=== PATIENT | female | born 1955 | race Caucasian/White ===

== ENCOUNTER → 2020-03-28 | Outpatient (CLI) | payer MEDICARE, BC ==
[~2020-03-28] MED LIST: APAP325T4 PO; ASPI81CH33 PO; ATOR1TAB21 PO; CALC1TAB26 PO; EQLTAB18 PO; FAMO20TA PO; FERR325T16 PO; LISI20TA35 PO; METO1TAB33 PO; SITA50TAB PO; VITA-158 PO; VITA1CHW7 PO
== END ==
LOC: M LABSMTC 10:38
PROVIDERS: ATTEND Anesthesiology
DX: Z01.812 Encounter for preprocedural laboratory examination (principal); Z20.828 Contact with and (suspected) exposure to other viral communicable diseases
CPT/HCPCS: C9803; U0003

== ENCOUNTER 2020-04-02 08:12 | Day surgery (SDC) | payer MEDICARE, BC ==
[~2020-04-02] VITALS: Ht 165.1 cm; Wt 76.7 kg
[~2020-04-02 08:12] MED LIST changes: -EQLTAB18 PO; -FAMO20TA PO; +LIDOCAINE 2% 100MG/5ML SDV (FOR ANES.) As Ordered ONE; +NS 1,000 ML IV ONE; +PHENYLephrine HCL 500 MCG/5 ML (100MCG/ML) SYRINGE (J2370) As Ordered ONE; +propofoL 200 MG/20 ML VIAL As Ordered ONE
[2020-04-02] MEDS ORDERED: ePHEDrine SULFATE 25 MG/5 ML(5MG/ML) SYRINGE As Ordered ONE (10:08)
[2020-04-02] MEDS ORDERED: propofoL 200 MG/20 ML VIAL As Ordered ONE (10:12)
[2020-04-02] MEDS ORDERED: PHENYLephrine HCL 500 MCG/5 ML (100MCG/ML) SYRINGE (J2370) As Ordered ONE (10:15)
--- NOTE | 2020-04-02 10:33 | ROOR ---
Patient Name: Chiquis Greenwood Procedure Date: 04/02/2020 9:42 AM Date of : 1955 Age: 64 Room: [facility] Gender: Female Note Status: Finalized Procedure: Upper GI endoscopy Indications: Iron deficiency anemia Providers: Nils Lopez MD Referring MD: Ehsan Jimenes MD Requesting Provider: Medicines: Monitored Anesthesia Care Complications: No immediate complications. Procedure: Pre-Anesthesia Assessment: - Prior to the procedure, a History and Physical was performed, and patient medications and allergies were reviewed. The patient is competent. The risks and benefits of the procedure and the sedation options and risks were discussed with the patient. All questions were answered and informed consent was obtained. Patient identification and proposed procedure were verified by the physician, the nurse and the anesthesiologist in the procedure room. Mental Status Examination: alert and oriented. Airway Examination: normal oropharyngeal airway and neck mobility. Respiratory Examination: clear to auscultation. CV Examination: normal. Prophylactic Antibiotics: The patient does not require prophylactic antibiotics. Prior Anticoagulants: The patient has taken no previous anticoagulant or antiplatelet agents. ASA Grade Assessment: II - A patient with mild systemic disease. After reviewing the risks and benefits, the patient was deemed in satisfactory condition to undergo the procedure. The anesthesia plan was to use monitored anesthesia care (MAC). Immediately prior to administration of medications, the patient was re-assessed for adequacy to receive sedatives. The heart rate, respiratory rate, oxygen saturations, blood pressure, adequacy of pulmonary ventilation, and response to care were monitored throughout the procedure. The physical status of the patient was re-assessed after the procedure. The Endoscope was introduced through the mouth, and advanced to the second part of duodenum. The upper GI endoscopy was accomplished without difficulty. The patient tolerated the procedure well. Findings: The Z-line was regular and was found 32 cm from the incisors. LA Grade A (one or more mucosal breaks less than 5 mm, not extending between tops of 2 mucosal folds) esophagitis with no bleeding was found in the distal esophagus. Biopsies were taken with a cold forceps for histology. Verification of patient identification for the specimen was done by the physician and nurse using the patient's name, date and medical record number. Estimated blood loss was minimal. A large hiatal hernia was present. Scattered moderate inflammation characterized by erosions, friability and granularity was found in the gastric body and in the gastric antrum. Biopsies were taken with a cold forceps for histology. Biopsies were taken with a cold forceps for Helicobacter pylori testing. The duodenal bulb and second portion of the duodenum were normal. Biopsies for histology were taken with a cold forceps for evaluation of celiac disease. Impression: - Z-line regular, 32 cm from the incisors. - LA Grade A reflux esophagitis. Rule out Ramirez's esophagus. Biopsied. - Large hiatal hernia. - Gastritis. Biopsied. - Normal duodenal bulb and second portion of the duodenum. Biopsied. Recommendation: - Patient has a contact number available for emergencies. The signs and symptoms of potential delayed complications were discussed with the patient. Return to normal activities tomorrow. Written discharge instructions were provided to the patient. - High fiber diet. - Continue present medications. - Await pathology results. - Follow an antireflux regimen. - Use Pepcid (famotidine) 20 mg PO Twice daily ( take assembler product on empty stomach and at bedtime) for 3 months. - Return to GI clinic in [facility] (address [address], [address], [place] [address]) in 4 -- 6 weeks. Please call GI clinic @ [phone] for apppointment date and time. - Return to primary care physician. Nils Lopez MD Nils Lopez MD 04/02/2020 10:33:39 AM Electronically signed by Nils Lopez MD Number of Addenda: 0 Note Initiated On: 04/02/2020 9:42 AM Estimated Blood Loss: Estimated blood loss was minimal.
--- NOTE | 2020-04-02 10:48 | ROOR ---
Patient Name: Chiquis Greenwood Procedure Date: 04/02/2020 9:43 AM Date of : 1955 Age: 64 Room: [facility] Gender: Female Note Status: Finalized Procedure: Colonoscopy Indications: Iron deficiency anemia Providers: Nils Lopez MD Referring MD: Ehsan Jimenes MD Requesting Provider: Medicines: Monitored Anesthesia Care Complications: No immediate complications. Procedure: Pre-Anesthesia Assessment: - Prior to the procedure, a History and Physical was performed, and patient medications and allergies were reviewed. The patient is competent. The risks and benefits of the procedure and the sedation options and risks were discussed with the patient. All questions were answered and informed consent was obtained. Patient identification and proposed procedure were verified by the physician, the nurse and the anesthesiologist in the procedure room. Mental Status Examination: alert and oriented. Airway Examination: normal oropharyngeal airway and neck mobility. Respiratory Examination: clear to auscultation. CV Examination: normal. Prophylactic Antibiotics: The patient does not require prophylactic antibiotics. Prior Anticoagulants: The patient has taken no previous anticoagulant or antiplatelet agents. ASA Grade Assessment: II - A patient with mild systemic disease. After reviewing the risks and benefits, the patient was deemed in satisfactory condition to undergo the procedure. The anesthesia plan was to use monitored anesthesia care (MAC). Immediately prior to administration of medications, the patient was re-assessed for adequacy to receive sedatives. The heart rate, respiratory rate, oxygen saturations, blood pressure, adequacy of pulmonary ventilation, and response to care were monitored throughout the procedure. The physical status of the patient was re-assessed after the procedure. The Colonoscope was introduced through the anus and advanced to the terminal ileum, with identification of the appendiceal orifice and IC valve. The colonoscopy was performed without difficulty. The patient tolerated the procedure well. The quality of the bowel preparation was good. The terminal ileum, ileocecal valve, appendiceal orifice, and rectum were photographed. Scope insertion time was 3 minutes. Scope withdrawal time was 9 minutes. The total duration of the procedure was 12 minutes. Findings: The perianal and digital rectal examinations were normal. The terminal ileum appeared normal. An infiltrative and ulcerated partially obstructing large mass was found in the proximal ascending colon. The mass was circumferential. The mass measured four cm in length. Contact bleeding is noted. This was biopsied with a cold forceps for histology. Verification of patient identification for the specimen was done by the physician and nurse using the patient's name, date and medical record number. Estimated blood loss was minimal. Area distal to the tumor was tattooed with an injection of Spot (carbon black). Multiple small and large-mouthed diverticula were found from sigmoid to descending colon. There was no evidence of diverticular bleeding. Non-bleeding external and internal hemorrhoids were found during retroflexion. The hemorrhoids were medium-sized. Impression: - The examined portion of the ileum was normal. - Likely malignant partially obstructing tumor in the proximal ascending colon. Biopsied. Area distal to the tumor was tattooed with an injection of Spot (carbon black). . - Moderate diverticulosis from sigmoid to descending colon. There was no evidence of diverticular bleeding. - Non-bleeding external and internal hemorrhoids. Recommendation: - Patient has a contact number available for emergencies. The signs and symptoms of potential delayed complications were discussed with the patient. Return to normal activities tomorrow. Written discharge instructions were provided to the patient. - High fiber diet. - Continue present medications. - Await pathology results. - Refer to a surgeon at appointment to be scheduled. - Perform a CT scan (computed tomography) of abdomen with contrast and pelvis with contrast for staging, ( to be scheduled). - Repeat colonoscopy in 1 year per protocol and for surveillance based on pathology results. - Refer to an oncologist at appointment to be scheduled. - Return to primary care physician. Nils Lopez MD Nils Lopez MD 04/02/2020 10:47:59 AM Electronically signed by Nils Lopez MD Number of Addenda: 0 Note Initiated On: 04/02/2020 9:43 AM Estimated Blood Loss: Estimated blood loss was minimal.
[2020-04-02 11:00] VITALS: BP 136/63
[2020-04-15] MEDS ORDERED: FAMO20TA PO (12:07)
[2020-05-30] MEDS ORDERED: EQLTAB18 PO (14:14)
== END 2020-04-02 11:23 | disposition home or self-care (01) ==
LOC: M OPP 08:12
PROVIDERS: ATTEND Internal Medicine Gastroenterology
DX: D49.0 Neoplasm of unspecified behavior of digestive system (principal); K64.8 Other hemorrhoids; K56.690 Other partial intestinal obstruction; K57.30 Diverticulosis of large intestine without perforation or abscess without bleeding; D50.9 Iron deficiency anemia, unspecified; K21.0 Gastro-esophageal reflux disease with esophagitis; K44.9 Diaphragmatic hernia without obstruction or gangrene; K29.70 Gastritis, unspecified, without bleeding; Z79.899 Other long term (current) drug therapy; Z79.84 Long term (current) use of oral hypoglycemic drugs; Z79.82 Long term (current) use of aspirin; Z88.1 Allergy status to other antibiotic agents; Z88.5 Allergy status to narcotic agent; Z88.8 Allergy status to other drugs, medicaments and biological substances
CPT/HCPCS: 43239; 45380; 88305; J2370

== ENCOUNTER → 2020-04-08 | Outpatient (CLI) | payer MEDICARE, BC ==
[~2020-04-08] MED LIST changes: +EQLTAB18 PO; +FAMO20TA PO; -LIDOCAINE 2% 100MG/5ML SDV (FOR ANES.) As Ordered ONE; -NS 1,000 ML IV ONE; -PHENYLephrine HCL 500 MCG/5 ML (100MCG/ML) SYRINGE (J2370) As Ordered ONE; -propofoL 200 MG/20 ML VIAL As Ordered ONE
[2020-04-08 10:11] LABS: BASO # 0.1 10^3/uL (0.0-0.2); BASO % 1.6 % (0.0-1.0); EOS # 0.2 10^3/uL (0.0-0.5); EOS % 3.3 % (0.0-3.0); HEMATOCRIT 30.4 % (36.0-47.0); HEMOGLOBIN 10.1 g/dl (12.0-15.5); LYMPH # 1.7 10^3/uL (1.5-5.0); LYMPH % 30.3 % (24.0-44.0); MEAN CORPUSCULAR HEMOGLOBIN 30.1 pg (27.0-33.0); MEAN CORPUSCULAR HGB CONC 33.2 g/dl (32.0-36.5); MEAN CORPUSCULAR VOLUME 90.7 fl (80.0-96.0); MONO # 0.6 10^3/uL (0.0-0.8); MONO % 11.7 % (0.0-5.0); NEUTROPHILS # 2.9 10^3/uL (1.5-8.5); NEUTROPHILS % 52.7 % (36.0-66.0); PLATELET COUNT, AUTOMATED 309 10^3/uL (150-450); RED BLOOD COUNT 3.35 10^6/uL (4.00-5.40); WHITE BLOOD COUNT 5.5 10^3/uL (4.0-10.0)
[2020-04-08 10:46] LABS: ALBUMIN 3.7 GM/DL (3.2-5.2); ALT/SGPT 20 U/L (12-78); BILIRUBIN,DIRECT 0.2 MG/DL (0.0-0.2); BILIRUBIN,TOTAL 0.6 MG/DL (0.2-1.0); BLOOD UREA NITROGEN 20 MG/DL (7-18); CREATININE FOR GFR 0.88 MG/DL (0.55-1.30); GLOMERULAR FILTRATION RATE > 60.0 (>45); TOTAL PROTEIN 7.1 GM/DL (6.4-8.2)
== END ==
LOC: M LAB 09:08
PROVIDERS: ATTEND Internal Medicine Gastroenterology
DX: C18.2 Malignant neoplasm of ascending colon (principal)

== ENCOUNTER → 2020-04-10 | Outpatient (CLI) | payer MEDICARE, BC ==
[~2020-04-10] MED LIST changes: +GASTROGRAFIN SOLUTION 30ML (Q9963) As Ordered ONE; +ISOVUE-370 76% 100ML VIAL As Ordered ONE
--- NOTE | 2020-04-16 17:14 | REP ---
CT ABDOMEN AND PELVIS WITH ORAL AND IV CONTRAST HISTORY: Malignant neoplasm ascending colon. FINDINGS: CT abdomen and pelvis performed following the administration of oral contrast as well as the intravenous administration of 100 cc of Isovue-370. Sagittal and coronal reconstruction images are performed. Visualized lung bases are clear. There is a calcified granuloma at the right dome of the liver. No liver mass is seen. The spleen is normal in size with no intrinsic abnormality. The adrenal glands are normal. The pancreas demonstrates no mass. There is a subcentimeter cyst in the lower pole of the right kidney. Otherwise no renal abnormality is seen bilaterally. There is mild to moderate atherosclerotic calcification of the abdominal aorta without aneurysm. There is a small hiatal hernia. Gallbladder is grossly unremarkable. I see no evidence of adenopathy in the abdomen or pelvis. I see no free air or free fluid. There may be some mild thickening of a portion of the ascending colon. Otherwise no definite bowel abnormality is seen. In the pelvis, a cystic structure of the left ovary measures 2.3 cm in diameter. Right ovary is unremarkable. Urinary bladder is mildly distended and grossly unremarkable. There are mild degenerative changes of the spine. Scattered diverticula are seen of the colon. IMPRESSION: Possible mild right colonic thickening. Otherwise no definite bowel wall thickening or mass. There are scattered diverticula of the colon. There is a small hiatal hernia. Otherwise no mass is seen of the visceral organs. No adenopathy is seen. Subcentimeter cyst is noted of the right kidney. Left ovary demonstrates a cystic structure approximately 2.3 cm in diameter. Recommend further evaluation with pelvic ultrasound. MTDD
== END ==
LOC: M RAD 12:25
PROVIDERS: ATTEND Internal Medicine Gastroenterology
DX: C18.2 Malignant neoplasm of ascending colon (principal)
CPT/HCPCS: 74177; Q9963; Q9967

== ENCOUNTER → 2020-04-21 | Outpatient (CLI) | payer MEDICARE, BC ==
[~2020-04-21] MED LIST changes: -GASTROGRAFIN SOLUTION 30ML (Q9963) As Ordered ONE; -ISOVUE-370 76% 100ML VIAL As Ordered ONE
== END ==
LOC: M LABSMTC 10:53
PROVIDERS: ATTEND Anesthesiology
DX: Z01.812 Encounter for preprocedural laboratory examination (principal); Z20.828 Contact with and (suspected) exposure to other viral communicable diseases
CPT/HCPCS: C9803; U0003

== ENCOUNTER 2020-04-26 06:11 | Inpatient (IN) | payer MEDICARE, BC ==
--- NOTE | 2020-04-25 09:23 | HPE ---
DATE OF ANTICIPATED ADMISSION: 04/26/2020. CHIEF COMPLAINT: Ascending colon mass. BRIEF HISTORY OF PRESENT ILLNESS: Patient is a 64-year-old female who underwent evaluation with a colonoscopy and EGD for anemia and during her colonoscopy, found a mass in the right colon. A biopsy revealed high-grade dysplasia. I was asked to see the patient here in the office and schedule a right colectomy for her. She had a CAT scan which revealed no metastatic disease and some thickening in the right colon, however once again it is called high-grade dysplasia, but when I view the photos of the lesion on the colonoscopy report, they appear to most likely be a malignancy. Patient has not had any bright red blood per rectum, and no melanotic stool. No nausea. No vomiting. No fevers or chills. No weight loss issues. PAST MEDICAL HISTORY: Significant for history of diabetes mellitus, history of hypertension, history of hypercholesterolemia, history of skin grafting. MEDICATIONS: Atorvastatin, Lisinopril, Hydrochlorothiazide, Metoprolol, Januvia, Refresh Tears, Vitamin D, Vitamin C, calcium, aspirin and iron as well as Famotidine. PHYSICAL EXAMINATION: GENERAL: Reveals a 64-year-old female, looks stated age. HEENT: Unremarkable. NECK: Supple without adenopathy. LUNGS: Clear to auscultation and without crackles, wheezes or rhonchi. HEART: Regular and without murmur. ABDOMEN: Soft, nontender, non-distended. No guarding, no rebound, no peritoneal signs are appreciated. EXTREMITIES: Warm and well perfused. IMPRESSION/PLAN: Patient has evidence of an abnormal mass in the right colon; most likely malignant colon cancer. My recommendation is to proceed with a laparoscopic right colectomy. Risks as well as benefits have been discussed at length with the patient, those including but limited to infection, bleeding, damage to the surrounding structures as well as need for ostomy. Patient understands that she will be receiving a mechanical bowel prep the day prior and an antibiotic bowel prep as well as I.V. antibiotics preoperatively. Will have PAT sequentials and Marina catheter placed at the time of the operation and postoperatively be hospitalized for approximately 3 to 5 days depending on her overall progress. [facility]
[2020-04-26] VITALS (9 sets, daily range): BP systolic 117–177; BP diastolic 55–84
[~2020-04-26] VITALS: Ht 170.2 cm; Wt 80.5 kg
[~2020-04-26 06:11] MED LIST changes: -EQLTAB18 PO
[2020-04-26] MEDS ORDERED: LevoFLOXacin 500MG/100ML IV BAG (J1956 PER 250MG) As Ordered ONE (06:44)
[2020-04-26] MEDS ORDERED: LR 1,000 ML IV ONE (07:00)
[2020-04-26] MEDS ORDERED: LevoFLOXacin IV 500 MG in IV 1 EA IV ONE (07:00)
[2020-04-26] MEDS ORDERED: BUPIVACAINE/EPIN 0.25% 30 ML VIAL As Ordered ONE (07:11)
[2020-04-26] MEDS ORDERED: GLUCAGON INJ 1MG VIAL As Ordered ONE (07:11)
[2020-04-26] MEDS ORDERED: METOPROLOL SUCC (TopROL XL) 50MG **XL** TAB PO ONE (07:15)
[2020-04-26] MEDS ORDERED: SCOPOLAMINE 1MG TRANSDERMAL PATCH TOP ONE (07:15)
[2020-04-26] MEDS ORDERED: LIDOCAINE 2% 100MG/5ML SDV (FOR ANES.) As Ordered ONE ×2 (07:16→07:17)
[2020-04-26] MEDS ORDERED: propofoL 200 MG/20 ML VIAL As Ordered ONE (07:16)
[2020-04-26] MEDS ORDERED: ROCURONIUM BROMIDE 50 MG/5 ML VIAL As Ordered ONE ×2 (07:16→09:03)
[2020-04-26] MEDS ORDERED: MIDAZOLAM INJ 2MG/2ML VIAL (J2250 PER 1MG) As Ordered ONE (07:17)
[2020-04-26] MEDS ORDERED: dexameTHASONE 4 MG/ML 1ML VIAL (J1100 PER 1MG) As Ordered ONE (07:17)
[2020-04-26] MEDS ORDERED: ONDANSETRON 4MG/2ML VIAL As Ordered ONE (07:17)
[2020-04-26] MEDS ORDERED: fentaNYL 100 MCG/2 ML INJECTION (J3010) As Ordered ONE (07:17)
[2020-04-26] MEDS ORDERED: ESMOLOL INJ 100MG/10ML VIAL As Ordered ONE (07:38)
[2020-04-26] MEDS ORDERED: PHENYLephrine HCL 500 MCG/5 ML (100MCG/ML) SYRINGE (J2370) As Ordered ONE ×2 (08:12→08:34)
[2020-04-26] MEDS ORDERED: LACRILUBE (AKWA TEARS) OPHTH OINT 3.5 GM As Ordered ONE (08:13)
[2020-04-26] MEDS ORDERED: METOPROLOL 5 MG/5 ML VIAL As Ordered ONE (08:14)
[2020-04-26] MEDS ORDERED: BUPIVACAINE HCL 0.25% 10ML VIAL As Ordered ONE (09:12)
[2020-04-26] MEDS ORDERED: BUPIVACAINE LIPOSOME/PF 1.3% 20ML VIAL (13.3MG/ML)(EXPAREL)(C9290 PER1MG) As Ordered ONE (09:13)
[2020-04-26] MEDS ORDERED: KETOROLAC 60MG 2ML VIAL As Ordered ONE (09:24)
[2020-04-26] MEDS ORDERED: ACETAMINOPHEN 1000MG 100ML IV BTL (OFIRMEV) (J0131 PER 10MG) As Ordered ONE (09:27)
[2020-04-26] MEDS ORDERED: SUGAMMADEX SODIUM 500 MG/5 ML VIAL (BRIDION) As Ordered ONE (09:35)
[2020-04-26] MEDS ORDERED: ONDANSETRON 4MG/2ML VIAL IV PRN ×2 (10:30→11:00)
[2020-04-26] MEDS ORDERED: IPRATROPIUM 0.5MG/ALBUTEROL 2.5MG INH SOL UD 3ML (DUONEB) NEB PRN (10:30)
[2020-04-26] MEDS ORDERED: MORPHINE 2 MG/ML 1ML VIAL (J2270) IV PRN (10:30)
[2020-04-26] MEDS ORDERED: NORCO, ANEXSIA 5/325MG TABLET (HYDROcodone/ACETAMINOPHEN) PO PRN ×2 (10:30)
[2020-04-26] MEDS ORDERED: MORPHINE 4 MG/ML 1ML VIAL/SYRINGE (J2270) IV PRN (10:30)
[2020-04-26] MEDS ORDERED: METOCLOPRAMIDE INJ 10MG/2ML VIAL (J2765 PER 1) IV PRN (11:00)
[2020-04-26] MEDS ORDERED: fentaNYL 100 MCG/2 ML INJECTION (J3010) IV PRN (11:00)
[2020-04-26] MEDS ORDERED: oxyCODONE 5MG TAB PO PRN (11:00)
[2020-04-26] MEDS ORDERED: LR 1,000 ML IV SCH (11:00)
[2020-04-26] MEDS ORDERED: HYDROMORPHONE HCL 0.5 MG/ 0.5 ML SYRINGE (J1170 PER 1) IV PRN (11:00)
[2020-04-26] MEDS: NS 1,000 ML IV SCH ×2 (12:14→20:07)
[2020-04-26] MEDS: PANTOPRAZOLE 40MG VIAL (C9113 PER 1) IV SCH (12:45)
[2020-04-26] MEDS: IPRATROPIUM 0.5MG/ALBUTEROL 2.5MG INH SOL UD 3ML (DUONEB) NEB SCH ×2 (14:17→20:02)
[2020-04-26] MEDS: KETOROLAC 30 MG/ML 1ML VIAL IV SCH ×2 (16:10→22:00)
[2020-04-27 00:45] VITALS: BP 132/64
[2020-04-27] MEDS: IPRATROPIUM 0.5MG/ALBUTEROL 2.5MG INH SOL UD 3ML (DUONEB) NEB SCH ×4 (02:00→19:47)
[2020-04-27] MEDS: KETOROLAC 30 MG/ML 1ML VIAL IV SCH ×4 (04:00→22:59)
[2020-04-27] MEDS: NS 1,000 ML IV SCH ×3 (04:04→16:44)
[2020-04-27 05:43] LABS: HEMATOCRIT 24.9 % (36.0-47.0); HEMOGLOBIN 8.2 g/dl (12.0-15.5); MEAN CORPUSCULAR HEMOGLOBIN 29.7 pg (27.0-33.0); MEAN CORPUSCULAR HGB CONC 32.9 g/dl (32.0-36.5); MEAN CORPUSCULAR VOLUME 90.2 fl (80.0-96.0); PLATELET COUNT, AUTOMATED 238 10^3/uL (150-450); RED BLOOD COUNT 2.76 10^6/uL (4.00-5.40); WHITE BLOOD COUNT 10.6 10^3/uL (4.0-10.0)
[2020-04-27 06:00] VITALS: BP 132/62
[2020-04-27 06:04] LABS: CALCIUM LEVEL 8.2 MG/DL (8.8-10.2); CREATININE FOR GFR 1.66 MG/DL (0.55-1.30); GLOMERULAR FILTRATION RATE 32.9 (>45); POTASSIUM SERUM 3.6 MEQ/L (3.5-5.1)
[2020-04-27] MEDS ORDERED: NS 500 ML IV ONE (08:00)
[2020-04-27] MEDS ORDERED: LevoFLOXacin IV 500 MG in IV 1 EA IV ONE (08:00)
[2020-04-27] MEDS: ALVIMOPAN 12 MG CAPSULE (ENTEREG) PO SCH ×2 (08:28→20:36)
--- NOTE | 2020-04-27 08:48 | IPNPDOC ---
Text Note Date of Service The patient was seen on 04/27/20. NOTE No acute events overnight. Denies nausea, emesis, or fevers. Abd pain is con trolled and she has already been up walking some. No flatus or BM yet, but she feels like she has to. VSSAF UOP - 400cc NAD abd - soft, TTP appropriate, incisions c/d/i labs - below Cr - 1.66 A) 64y/o female s/p rt hemicolectomy for mass POD#1 P) clq diet today ivf with bolus today ambulate in halls encourage IS strict I's and O's d/c hernandez start lovenox due to high risk for DVT Ra Cabezas DO VS,Vinnie, I+O VS, Vinnie, I+O Laboratory Tests 04/27/20 05:29 Vital Signs Date Time Temp Pulse Resp B/P (MAP) Pulse Ox O2 Delivery O2 Flow Rate FiO2 04/27/20 06:00 98.1 54 18 132/62 (85) 97 Room Air I&O- Last 24 Hours up to 6 AM 04/27/20 05:59 Intake Total 2590 ml Output Total 425 ml Balance 2165 ml JANET CABEZAS DO Apr 27, 2020 08:48
[2020-04-27 10:00] VITALS: BP 114/57
[2020-04-27] MEDS: ENOXAPARIN 40MG/0.4ML SYRINGE (J1650 PER 10MG) SC SCH (10:08)
[2020-04-27] MEDS: PANTOPRAZOLE 40MG VIAL (C9113 PER 1) IV SCH (12:10)
[2020-04-27 14:00] VITALS: BP 128/58
[2020-04-27 18:00] VITALS: BP 128/61
[2020-04-27 22:00] VITALS: BP 134/74
[2020-04-28] MEDS: NS 1,000 ML IV SCH (00:47)
[2020-04-28 02:00] VITALS: BP 135/62
[2020-04-28] MEDS: IPRATROPIUM 0.5MG/ALBUTEROL 2.5MG INH SOL UD 3ML (DUONEB) NEB SCH ×4 (02:00→20:00)
[2020-04-28] MEDS: KETOROLAC 30 MG/ML 1ML VIAL IV SCH ×4 (04:00→20:52)
[2020-04-28 06:00] VITALS: BP 138/64
[2020-04-28 06:33] LABS: HEMATOCRIT 23.8 % (36.0-47.0); HEMOGLOBIN 7.6 g/dl (12.0-15.5); MEAN CORPUSCULAR HEMOGLOBIN 29.3 pg (27.0-33.0); MEAN CORPUSCULAR HGB CONC 31.9 g/dl (32.0-36.5); MEAN CORPUSCULAR VOLUME 91.9 fl (80.0-96.0); PLATELET COUNT, AUTOMATED 216 10^3/uL (150-450); RED BLOOD COUNT 2.59 10^6/uL (4.00-5.40)
[2020-04-28 07:01] LABS: BLOOD UREA NITROGEN 18 MG/DL (7-18); CALCIUM LEVEL 8.3 MG/DL (8.8-10.2); CARBON DIOXIDE LEVEL 20 MEQ/L (21-32); CHLORIDE LEVEL 118 MEQ/L (98-107); CREATININE FOR GFR 0.93 MG/DL (0.55-1.30); GLOMERULAR FILTRATION RATE > 60.0 (>45); GLUCOSE, FASTING 73 MG/DL (70-100); POTASSIUM SERUM 3.6 MEQ/L (3.5-5.1); SODIUM LEVEL 145 MEQ/L (136-145)
--- NOTE | 2020-04-28 09:01 | IPNPDOC ---
Text Note Date of Service The patient was seen on 04/28/20. NOTE No acute events overnight. Denies nausea, emesis, or fevers. Abd pain is minimal and she is tolerating diet and hd 2 BMs. She is anxious to go home. VSSAF NAD abd - soft, TTP appropriate, incisions c/d/i labs - below A) 64y/o female s/p rt hemicolectomy for mass POD#2 P) reg diet today dc ivf ambulate in halls encourage IS plan on d/c home in am Ra Cabezas DO VS,Fishbone, I+O VS, Fishbone, I+O Laboratory Tests 04/28/20 05:39 Vital Signs Date Time Temp Pulse Resp B/P (MAP) Pulse Ox O2 Delivery O2 Flow Rate FiO2 04/28/20 06:00 97.9 72 18 138/64 (88) 97 Room Air I&O- Last 24 Hours up to 6 AM 04/28/20 06:00 Intake Total 5560 ml Output Total 1350 ml Balance 4210 ml JANET CABEZAS DO Apr 28, 2020 09:01
[2020-04-28 10:00] VITALS: BP 126/60
[2020-04-28] MEDS: ENOXAPARIN 40MG/0.4ML SYRINGE (J1650 PER 10MG) SC SCH (10:15)
[2020-04-28] MEDS: ALVIMOPAN 12 MG CAPSULE (ENTEREG) PO SCH ×2 (10:15→20:53)
[2020-04-28] MEDS: PANTOPRAZOLE 40MG VIAL (C9113 PER 1) IV SCH (12:51)
[2020-04-28 14:00] VITALS: BP 126/60
[2020-04-28 18:00] VITALS: BP 136/67
[2020-04-28 22:00] VITALS: BP 144/68
[2020-04-29 02:00] VITALS: BP 152/70
[2020-04-29] MEDS: IPRATROPIUM 0.5MG/ALBUTEROL 2.5MG INH SOL UD 3ML (DUONEB) NEB SCH ×2 (02:00→07:39)
[2020-04-29] MEDS: KETOROLAC 30 MG/ML 1ML VIAL IV SCH ×2 (04:00→09:02)
[2020-04-29 06:00] VITALS: BP 153/71
[2020-04-29 06:47] LABS: HEMATOCRIT 23.9 % (36.0-47.0); HEMOGLOBIN 7.8 g/dl (12.0-15.5); MEAN CORPUSCULAR HEMOGLOBIN 29.9 pg (27.0-33.0); MEAN CORPUSCULAR HGB CONC 32.6 g/dl (32.0-36.5); MEAN CORPUSCULAR VOLUME 91.6 fl (80.0-96.0); PLATELET COUNT, AUTOMATED 209 10^3/uL (150-450); RED BLOOD COUNT 2.61 10^6/uL (4.00-5.40); WHITE BLOOD COUNT 4.6 10^3/uL (4.0-10.0)
[2020-04-29 07:13] LABS: BLOOD UREA NITROGEN 13 MG/DL (7-18); CALCIUM LEVEL 8.6 MG/DL (8.8-10.2); CARBON DIOXIDE LEVEL 22 MEQ/L (21-32); CHLORIDE LEVEL 119 MEQ/L (98-107); CREATININE FOR GFR 0.84 MG/DL (0.55-1.30); GLOMERULAR FILTRATION RATE > 60.0 (>45); GLUCOSE, FASTING 84 MG/DL (70-100); POTASSIUM SERUM 3.4 MEQ/L (3.5-5.1); SODIUM LEVEL 146 MEQ/L (136-145)
[2020-04-29] MEDS: ALVIMOPAN 12 MG CAPSULE (ENTEREG) PO SCH (08:50)
[2020-04-29] MEDS: ENOXAPARIN 40MG/0.4ML SYRINGE (J1650 PER 10MG) SC SCH (08:51)
--- NOTE | 2020-04-30 08:52 | RO ---
DATE OF OPERATION: PREOPERATIVE DIAGNOSIS: Right colon mass/polyp high grade dysplasia. POSTOPERATIVE DIAGNOSIS: Right colon mass/polyp high grade dysplasia, probable colon cancer. PROCEDURE: Laparoscopic right hemicolectomy. SURGEON: Piter Joseph MD BUSINESS B[employer]ING SALES ASSISTANT: Dr. Cabezas (provided retraction and exposure and assistance with the anastomosis and abdominal wall closure). ANESTHESIA: General endotracheal anesthesia. EBL: Minimal. FLUIDS: Crystalloid. BRIEF PROCEDURE SUMMARY: The patient was brought to the operating room, was given general anesthesia. After adequate anesthesia and preoperative antibiotics were given the patient was prepped and draped in usual sterile fashion. A supraumbilical incision was made with skin knife. Blunt dissection was carried down to fascia. The fascia was entered with Veress needle and insufflated to 15 mm pressure. Dilating 10 mm trocar was placed and under direct visualization a suprapubic, left lower quadrant 5 mm trocars were placed. An epigastric 5 mm trocar was placed and there were some adhesions in the right abdominal wall next to where the colon was tattooed and these were taken down with Harmonic scalpel. The white line of Toldt was taken down with Harmonic scalpel and taking this off Gerotas fascia. Once this was mobilized off Gerotas laterally and towards the duodenum the duodenum was widely visualized all around the sweep of the duodenum. Dissection continued on the transverse colon taking the omentum off the transverse colon down to the mesentery. Once the hepatic flexure was able to be mobilized nicely in the transverse colon in this area, the mesentery of the transverse colon was transected with Harmonic scalpel all around toward the C- loop of the duodenum. The cecum was brought out through midline incision after creating the midline incision with skin knife, electrocautery through skin, dermis, underlying subcutaneous tissue through fascia and the mesentery of the ileocolic vessels were taken with Harmonic scalpel down to the vessels themselves and then the vessels were taken with [place] 60 stapler. The terminal ileum and colon were transected using ANDREAS 75 staplers and [id number] anastomosis with ANDREAS stapler was created and then the enterotomy site was removed with ANDREAS 75 stapler. The colon was imbricated using 3-0 Vicryl and returned to the abdominal cavity. The midline incision was closed in running manner with #0 Vicryl. [place] were used to approximate the skin. Dry, sterile dressing was applied. The patient was awakened from her anesthesia and brought to the recovery room awake, alert and hemodynamically stable. Sponge and needle counts correct x2. MTDD
--- NOTE | 2020-05-21 07:22 | DS ---
DATE OF ADMISSION: 04/26/2020 DATE OF DISCHARGE: 04/29/2020 PRINCIPAL DIAGNOSIS: Colon cancer/Adenoma carcinoma of the right colon. ASSOCIATED DIAGNOSES: * History of diabetes mellitus. * History of hypertension. * History of hypercholesterolemia. * History of skin grafting. * History of left lower leg injury. BRIEF HISTORY OF PRESENT ILLNESS: Patient is a 64-year-old female who looks stated age, underwent an endoscopy for anemia and was found to have a mass in the right colon. Biopsy revealed high grade dysplasia; however, the lesion looked like a cancer. Follow up CT scans were negative for metastatic disease and she was scheduled for a laparoscopic right colectomy. HOSPITAL COURSE SUMMARY: The patient was admitted with the above diagnosis, was taken to the operating room where she underwent laparoscopic right colectomy. Post-operatively she did quite well, gradually increased her activity, was tolerating a regular diet, prior to discharge had bowel movements, had no nausea, no vomiting, her incisions were clean, dry, healing without erythema, drainage or discharge. She was discharged home on her usual medications which include: * Tylenol. * Vitamin C. * Aspirin. * Atorvastatin. * Vitamin D. * Famotidine. * Lisinopril/hydrochlorothiazide. * Metoprolol. * Januvia. Final pathology revealed an adenocarcinoma of the right colon (moderately differentiated) with 0/16 nodes positive for metastatic disease and for lymphatic disease. Final pathology reveals [id number]. FOLLOW UP: Patient was instructed to follow up in 1 week for suture removal and follow up in 2 weeks with myself. ROXANNA
[2020-05-30] MEDS ORDERED: EQLTAB18 PO (14:14)
== END 2020-04-29 11:34 | disposition home or self-care (01) | DRG 331 ==
LOC: M OR 06:11 → M MSPAV 11:24
PROVIDERS: ADMIT Surgery; ATTEND Surgery
PROC: 0DBK4ZZ Excision of Ascending Colon, Percutaneous Endoscopic Approach (ICD-10-PCS; principal; 2020-04-26 07:30)
DX: C18.2 Malignant neoplasm of ascending colon (principal); E11.9 Type 2 diabetes mellitus without complications; I10 Essential (primary) hypertension; E78.00 Pure hypercholesterolemia, unspecified; Z79.899 Other long term (current) drug therapy

== ENCOUNTER → 2020-11-28 | Outpatient (CLI) | payer MEDICARE, BC ==
[~2020-11-28] MED LIST changes: +EQLTAB18 PO; +FERR324T21 PO; -FERR325T16 PO; +GASTROGRAFIN SOLUTION 30ML (Q9963) As Ordered ONE; +ISOVUE-370 76% 100ML VIAL As Ordered ONE
--- NOTE | 2020-11-28 14:28 | REP ---
INDICATION: COLON CA. COMPARISON: 04/10/2020 TECHNIQUE: Standard helical technique after the intravenous administration of 100 cc Isovue 370 and oral bowel preparatory contrast administration FINDINGS: The liver, gallbladder, spleen, pancreas, adrenal glands, and kidneys are unchanged and again seen to be within normal limits. The abdominal aorta and para-regions are unchanged and again seen to be within normal limits. There is an incidental small hiatal hernia status quo. Since the last examination the patient has undergone right partial hemicolectomy. Postoperative changes are seen in the right lower quadrant. There is no free fluid or free air. There is no mass or adenopathy. There is a small adipose containing ventral hernia the aperture of which measures approximately 2.8 cm. This has developed since last exam. Bone window technique throughout the exam shows no significant change in appearance of the imaged osseous structures. An incidental old injection calcified granuloma is again seen in the left buttock adipose tissue. IMPRESSION: 1. There is no evidence of acute disease. 2. Postoperative changes as described above. 3. Small adipose containing ventral hernia. 4. Other findings as described above. <Electronically signed by Rao Jett > 11/28/20 [id number]
--- NOTE | 2020-11-28 14:38 | REP ---
INDICATION: COLON CA COMPARISON: None. TECHNIQUE: Standard helical technique after the intravenous administration of 100 cc Isovue 370. FINDINGS: There is no mediastinal or hilar adenopathy. There is mixed enhancement in the thyroid gland possibly related to cyst formation. There are no pleural or pericardial effusions. The imaged osseous structures are within normal limits for the patient's age. Evaluation of the lung [place] shows no abnormal nodules, masses, or opacities. IMPRESSION: 1. Mixed enhancement involving the thyroid gland as described above. Thyroid ultrasonography is recommended. 2. No evidence of acute intrathoracic disease. <Electronically signed by Rao Jett > 11/28/20 [id number]
== END ==
LOC: M RAD 12:07
PROVIDERS: ATTEND Internal Medicine Hematology & Oncology
DX: C18.9 Malignant neoplasm of colon, unspecified (principal); K43.9 Ventral hernia without obstruction or gangrene
CPT/HCPCS: 71260; 74177; Q9963; Q9967

== ENCOUNTER → 2021-04-28 | Outpatient (CLI) | payer MEDICARE, BC ==
[~2021-04-28] MED LIST changes: -GASTROGRAFIN SOLUTION 30ML (Q9963) As Ordered ONE; -ISOVUE-370 76% 100ML VIAL As Ordered ONE
== END ==
LOC: M LABSMTC 11:36
PROVIDERS: ATTEND Anesthesiology
DX: Z01.812 Encounter for preprocedural laboratory examination (principal); Z20.822 Contact with and (suspected) exposure to COVID-19

== ENCOUNTER 2021-05-02 06:57 | Day surgery (SDC) | payer MEDICARE, BC ==
[~2021-05-02] VITALS: Ht 167.6 cm; Wt 77.6 kg
[~2021-05-02 06:57] MED LIST changes: +NS 1,000 ML IV ONE
--- OUTSIDE RECORDS SUMMARY | 2021-05-02 07:00 | CCD | Continuity of Care Document ---
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 Name Role Phone [facility] [phone] Problems Active Problems Provider Date Edema Katey Gaviria DPM-pc Onset: 10/19/2018 Callosity under metatarsal head Katey Gaviria DPM-pc Onset : 12/15/2017 Neuropathy due to type 2 diabetes mellitus Michael Vazquez PM-pc Onset: 12/15/2017 Pain in limb Katey Gaviria DPM-pc Onset: 12/15/2017 Dystrophia unguium Katey Gaviria DPM-pc Onset: 12/15/2017 Onychomycosis Katey Gaviria DPM-pc Onset: 12/15/2017 Plantar nerve lesion Katey Gaviria DPM-pc Onset: 8 Social History Type Date Description Comments Sex Unknown Tobacco Use Start: Unknown Never Smoked Cigarettes Tobacco Use Start: Unknown Never Smoked Cigars Tobacco Use Start: Unknown Never Smoked A Pipe Smoking Status Reviewed: 04/28/21 Never Smoked A Pipe Tobacco Use Start: Unknown Never Used Smokeless Tobacco ETOH Use Denies alcohol use Tobacco Use Start: Unknown Patient has never smoked Allergies, Adverse Reactions, Alerts Active Allergies Criticality Reaction | Severity Comments Date Ampicillin Unable to assess criticality Contact dermatitis 12/15/2017 Demerol Unable to assess criticality Urticaria 12/15/2017 Medications Active Medications SIG Qnty Indications Ordering Provide r Date Metoprolol Succinate ER 100mg Tablets ER 24HR Take One Tablet By Mouth Daily Unknown Januvia 50mg Tablets Take Two Tablets By Mouth Every Day Unknown Atorvastatin Calcium 20mg Tablets Take One Tablet By Mouth Daily Unknown Lisinopril-Hydrochlorothiazide 20-12.5mg Tablets Take Two Tablets By Mouth Daily Unknown Immunizations Description No Information Available Vital Signs Date Vital Result Comment 12/28/2018 10:23am Weight 188.00 lb Weight 85.277 kg 10/19/2018 9:27am Weight 185.00 lb Weight 83.916 kg Height 66 inches 5'6" BMI (Body Mass Index) 29.9 kg/m2 BSA (Body Surface Area) 1.93 m2 Results Description No Information Available Procedures Date Code Description Status 02/18/2021 54693 Debridement Nails Any Method 1-5 Completed 02/18/2021 67069 Pare Hyperkeratotic Lesion, 2-4 Completed 12/10/2020 68635 Debridement Nails Any Method 1-5 Completed 12/10/2020 82845 Pare Hyperkeratotic Lesion, 2-4 Completed Medical Devices Description No Information Available Encounters Description No Information Available Assessments Date Code Description Provider 04/28/2021 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 Kateydago Gaviria DP- 04/28/2021 R60.1 Generalized edema Katey Gaviria DPM-pc 04/28/2021 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, unspeci fied lower limb Katey Gaviria DPM-pc 04/28/2021 L60.3 Nail dystrophy MARIO Vazquez- 04/28/2021 B35.1 Tinea unguium Katey Gaviria DP-pc 04/28/2021 L84 Corns and callosities Katey Will MARIO villa- 02/18/2021 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 KateyMARIO AlfredM-pc 02/18/2021 R60.1 Generalized edema MARIO VazquezM-pc 02/18/2021 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, unspeci fied lower limb Katey Gaviria DPM-pc 02/18/2021 L60.3 Nail dystrophy Katey Gaviria DPM-pc 02/18/2021 B35.1 Tinea unguium Katey Gaviria DPM-pc 02/18/2021 L84 Corns and callosities Katey Will daisy DP- 12/10/2020 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 Johnathon Vazquez 12/10/2020 R60.1 Generalized edema Johnathon Vazquez 12/10/2020 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, unspeci fied lower limb Johnathon Vazquez 12/10/2020 L60.3 Nail dystrophy Johnathon Vazquez 12/10/2020 B35.1 Tinea unguium Johnathon Vazquez 12/10/2020 L84 Corns and callosities Johnathon [place] Plan of Treatment Future Appointment(s):* 07/03/2021 10:30 am - Johnathon Vazquez at [facility] Pod[facility] 04/28/2021 - Johnathon Vazquez* E11.49 Type 2 diabetes mellitus with other diabetic neurological co * R60.1 Generalized edema * 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, unspecified lower limb * L60.3 Nail dystrophy * B35.1 Tinea unguium * L84 Corns and callosities* Comments:* I removed hyperkeratosis from L2 metatarsal and pinch callus bilaterally with scalpel and burred to normal thickness. I debrided mycotic nails: x2 with nippers and burred to normal thickness. I trimmed dystrophic nails: x8 with nippers and bur. She was advised to continue wearing supportive stocking on the left leg to control her edema. Lotioned feet. Follow up in 10-weeks. Functional Status Description No Information Available Mental Status Description No Information Available Referrals Description No Information Available
--- OUTSIDE RECORDS SUMMARY | 2021-05-02 07:01 | CCD ---
Author Author [facility] Organization [facility] Address Unknown Phone Unavailable Care Team Providers Care Customer Leader Name Role Phone Kocan, J Yoon DIRECTOR OF KIDS Unavailable Unavailable Kocan, J Yoon DIRECTOR OF KIDS Unavailable Unavailable Kocan, J Yoon DIRECTOR OF KIDS Unavailable Unavailable Kocan, J Yoon DIRECTOR OF KIDS Unavailable Unavailable Kocan, J Yoon DIRECTOR OF KIDS Unavailable Unavailable Kocan, J Yoon DIRECTOR OF KIDS Unavailable Unavailable Kocan, J Yoon DIRECTOR OF KIDS Unavailable Unavailable Kocan, J Yoon DIRECTOR OF KIDS Unavailable Unavailable Kocan, J Yoon DIRECTOR OF KIDS Unavailable Unavailable Kocan, J Yoon DIRECTOR OF KIDS Unavailable Unavailable Kocan, J Yoon DIRECTOR OF KIDS Unavailable Unavailable Kocan, J Yoon DIRECTOR OF KIDS Unavailable Unavailable Kocan, J Yoon DIRECTOR OF KIDS Unavailable Unavailable VANWAGNER, TIMMY DO Unavailable Unavailable VANWAGNER, TIMMY DO Unavailable Unavailable VANWAGNER, TIMMY DO Unavailable Unavailable VANWAGNER, TIMMY DO Unavailable Unavailable VANWAGNER, TIMMY DO Unavailable Unavailable VANWAGNER, TIMMY DO Unavailable Unavailable VANWAGNER, TIMMY DO Unavailable Unavailable VANWAGNER, TIMMY DO Unavailable Unavailable VANWAGNER, TIMMY DO Unavailable Unavailable VANWAGNER, TIMMY DO Unavailable Unavailable VANWAGNER, TIMMY DO Unavailable Unavailable VANWAGNER, TIMMY DO Unavailable Unavailable VANWAGNER, TIMMY DO Unavailable Unavailable VANWAGNER, TIMMY DO Unavailable Unavailable VANWAGNER, TIMMY DO Unavailable Unavailable VANWAGNER, TIMMY DO Unavailable Unavailable MD SYMONE PORTILLO Unavailable Unavailable Agustín Joseph JR, MD Unavailable Unavailable Agustín Joseph JR, MD Unavailable Unavailable Agustín Joseph JR, MD Unavailable Unavailable Agustín Joseph JR, MD Unavailable Unavailable Agustín Joseph JR, MD Unavailable Unavailable Agustín Joseph JR, MD Unavailable Unavailable Agustín Joseph JR, MD Unavailable Unavailable Agustín Joseph JR, MD Unavailable Unavailable Agustín Joseph JR, MD Unavailable Unavailable Agustín Joseph JR, MD Unavailable Unavailable Agustín Joseph JR, MD Unavailable Unavailable Agustín Joseph JR, MD Unavailable Unavailable Agustín Joseph JR, MD Unavailable Unavailable Agustín Joseph JR, MD Unavailable Unavailable Agustín Joseph JR, MD Unavailable Unavailable Agustín Joseph JR, MD Unavailable Unavailable Agustín Joseph JR, MD Unavailable Unavailable Agustín Joseph JR, MD Unavailable Unavailable Agustín Joseph JR, MD Unavailable Unavailable Agustín Joseph JR, MD Unavailable Unavailable Agustín Joseph JR, MD Unavailable Unavailable Agustín Joseph JR, MD Unavailable Unavailable Agustín Joseph JR, MD Unavailable Unavailable Agustín Joseph JR, MD Unavailable Unavailable Agustín Joseph JR, MD Unavailable Unavailable Agustín Joseph JR, MD Unavailable Unavailable Agustín Joseph JR, MD Unavailable Unavailable Agustín Joseph JR, MD Unavailable Unavailable Agustín Joseph JR, MD Unavailable Unavailable Agustín Joseph JR, MD Unavailable Unavailable Agustín Joseph JR, MD Unavailable Unavailable Agustín Joseph JR, MD Unavailable Unavailable Agustín Joseph JR, MD Unavailable Unavailable Agustín Joseph JR, MD Unavailable Unavailable Agustín Joseph JR, MD Unavailable Unavailable Agustín Joseph JR, MD Unavailable Unavailable Agustín Joseph JR, MD Unavailable Unavailable Agustín Joseph JR, MD Unavailable Unavailable Agustín Joseph JR, MD Unavailable Unavailable gAustín Joseph JR, MD Unavailable Unavailable Agustín Joseph JR, MD Unavailable Unavailable Agustín Joseph JR, MD Unavailable Unavailable Agustín Joseph JR, MD Unavailable Unavailable Agustín Joseph JR, MD Unavailable Unavailable Agustín Joseph JR, MD Unavailable Unavailable Agustín Joseph JR, MD Unavailable Unavailable Agustín Joseph JR, MD Unavailable Unavailable Agustín Joseph JR, MD Unavailable Unavailable Agustín Joseph JR, MD Unavailable Unavailable Agustín Joseph JR, MD Unavailable Unavailable Agustín Joseph JR, MD Unavailable Unavailable Agustín Joseph JR, MD Unavailable Unavailable Agsutín Joseph JR, MD Unavailable Unavailable Agustín Joseph JR, MD Unavailable Unavailable Lizabeth, A Wale Unavailable Unavailable Lizabeth, A Wale Unavailable Unavailable Lizabeth, A Wale Unavailable Unavailable Lizabeth, A Wale Unavailable Unavailable Lizabeth, A Wale Unavailable Unavailable Lizabeth, A Wale Unavailable Unavailable Lizabeth, A Wale Unavailable Unavailable Lizabeth, A Wale Unavailable Unavailable Lizabeth, A Wale Unavailable Unavailable Lizabeth, A Wale Unavailable Unavailable Lizabeth, A Wale Unavailable Unavailable Lizabeth, A Wale Unavailable Unavailable Lizabeth, A Wale Unavailable Unavailable Lizabeth, A Wale Unavailable Unavailable Lizabeth, A Wale Unavailable Unavailable Lizabeth, A Wale Unavailable Unavailable Lizabeth, A Wale Unavailable Unavailable Lizabeth, A Wale Unavailable Unavailable DR MD TAY RACHEL Unavailable Unavailable EVERETTE, J LETTY DPM PC Unavailable Unavailable EVERETTE, J LETTY DPM PC Unavailable Unavailable EVERETTE, J LETTY DPM PC Unavailable Unavailable EVERETTE, J LETTY DPM PC Unavailable Unavailable EVERETTE, J LETTY DPM PC Unavailable Unavailable EVERETTE, J LETTY DPM PC Unavailable Unavailable EVERETTE, J LETTY DPM PC Unavailable Unavailable EVERETTE, J LETTY DPM PC Unavailable Unavailable EVERETTE, J LETTY DPM PC Unavailable Unavailable EVERETTE, J LETTY DPM PC Unavailable Unavailable EVERETTE, J LETTY DPM PC Unavailable Unavailable EVERETTE, J LETTY DPM PC Unavailable Unavailable EVERETTE, J LETTY DPM PC Unavailable Unavailable EVERETTE, J LETTY DPM PC Unavailable Unavailable EVERETTE, J LETTY DPM PC Unavailable Unavailable EVERETTE, J LETTY DPM PC Unavailable Unavailable EVERETTE, J LETTY DPM PC Unavailable Unavailable EVERETTE, J LETTY DPM PC Unavailable Unavailable EVERETTE, J LETTY DPM PC Unavailable Unavailable EVERETTE, J LETTY DPM PC Unavailable Unavailable EVERETTE, J LETTY DPM PC Unavailable Unavailable EVERETTE, J LETTY DPM PC Unavailable Unavailable EVERETTE, J LETTY DPM PC Unavailable Unavailable EVERETTE, J LETTY DPM PC Unavailable Unavailable EVERETTE, J LETTY DPM PC Unavailable Unavailable EVERETTE, J LETTY DPM PC Unavailable Unavailable EVERETTE, J LETTY DPM PC Unavailable Unavailable OTHER, DR PHYSICIAN REFERRING Unavailable Unavailabl e Lelia, Chiquis Vik MARINE PLUMBER Unavailable Unavailable Wyatt, Chiquis Vik MARINE PLUMBER Unavailable Unavailable Lelia, Chiquis Vik MARINE PLUMBER Unavailable Unavailable Wyatt, Chiquis Vik MARINE PLUMBER Unavailable Unavailable Lelia, Chiquis Vik MARINE PLUMBER Unavailable Unavailable Lelia, Chiquis Vik MARINE PLUMBER Unavailable Unavailable Wyatt, Chiquis Vik MARINE PLUMBER Unavailable Unavailable Lelia, Chiquis Vik MARINE PLUMBER Unavailable Unavailable Wyatt, Chiquis Vik MARINE PLUMBER Unavailable Unavailable Lelia, Chiquis Vik MARINE PLUMBER Unavailable Unavailable Wyatt, Chiquis Vik MARINE PLUMBER Unavailable Unavailable Wyatt, Chiquis Vik MARINE PLUMBER Unavailable Unavailable Lelia, Chiquis Vik MARINE PLUMBER Unavailable Unavailable Wyatt, Chiquis Vik MARINE PLUMBER Unavailable Unavailable MANDY, BAILEE FELICIANO Unavailable Unavailable MANDY, BAILEE FELICIANO Unavailable Unavailable MANDY, BAILEE FELICIANO Unavailable Unavailable MANDY, BAILEE FELICIANO Unavailable Unavailable MANDY, BAILEE FELICIANO Unavailable Unavailable MANDY, BAILEE FELICIANO Unavailable Unavailable MANDY, BAILEE FELICIANO Unavailable Unavailable MANDY, BAILEE FELICIANO Unavailable Unavailable MANDY, BAILEE FELICIANO Unavailable Unavailable MANDY, BAILEE FELICIANO Unavailable Unavailable MANDY, BAILEE FELICIANO Unavailable Unavailable MANDY, BAILEE FELICIANO Unavailable Unavailable MANDY, BAILEE FELICIANO Unavailable Unavailable MANDY, BAILEE FELICIANO Unavailable Unavailable MANDY, BAILEE FELICIANO Unavailable Unavailable MANDY, BAILEE FELICIANO Unavailable Unavailable MANDY, BAILEE FELICIANO Unavailable Unavailable MANDY, BAILEE FELICIANO Unavailable Unavailable MANDY, BAILEE FELICIANO Unavailable Unavailable MANDY, BAILEE FELICIANO Unavailable Unavailable MANDY, BAILEE FELICIANO Unavailable Unavailable MANDY, BAILEE FELICIANO Unavailable Unavailable MANDY, BAILEE FELICIANO Unavailable Unavailable MANDY, BAILEE FELICIANO Unavailable Unavailable MANDY, BAILEE FELICIANO Unavailable Unavailable MANDY, BAILEE FELICIANO Unavailable Unavailable MANDY, BAILEE FELICIANO Unavailable Unavailable MANDY, BAILEE FELICIANO Unavailable Unavailable MANDY, BAILEE FELICIANO Unavailable Unavailable MANDY, BAILEE FELICIANO Unavailable Unavailable MANDY, BAILEE FELICIANO Unavailable Unavailable MANDY, BAILEE FELICIANO Unavailable Unavailable MANDY, BAILEE FELICIANO Unavailable Unavailable MANDY, BAILEE FELICIANO Unavailable Unavailable MANDY, BAILEE FELICIANO Unavailable Unavailable MANDY, BAILEE FELICIANO Unavailable Unavailable MANDY, BAILEE FELICIANO Unavailable Unavailable MANDY, BAILEE FELICIANO Unavailable Unavailable MANDY, BAILEE FELICIANO Unavailable Unavailable MANDY, BAILEE FELICIANO Unavailable Unavailable MANDY, BAILEE FELICIANO Unavailable Unavailable MANDY, BAILEE FELICIANO Unavailable Unavailable MANDY, BAILEE FELICIANO Unavailable Unavailable MANDY, BAILEE FELICIANO Unavailable Unavailable MANDY, BAILEE FELICIANO Unavailable Unavailable MANDY, BAILEE FELICIANO Unavailable Unavailable MANDY, BAILEE FELICIANO Unavailable Unavailable MANDY, BAILEE FELICIANO Unavailable Unavailable MANDY, BAILEE FELICIANO Unavailable Unavailable MANDY, BAILEE FELICIANO Unavailable Unavailable MANDY, BAILEE FELICIANO Unavailable Unavailable MANDY, BAILEE FELICIANO Unavailable Unavailable MANDY, BAILEE FELICIANO Unavailable Unavailable MANDY, BAILEE FELICIANO Unavailable Unavailable MANDY, BAILEE FELICIANO Unavailable Unavailable Bc Jimenes MD Unavailable Unavailable Bc Jimenes MD Unavailable Unavailable Bc Jimenes MD Unavailable Unavailable Bc Jimenes MD Unavailable Unavailable Bc Jimenes MD Unavailable Unavailable Bc Jimenes MD Unavailable Unavailable Bc Jimenes MD Unavailable Unavailable Bc Jimenes MD Unavailable Unavailable Sorge, C Ehsan MD Unavailable Unavailable Sorge, C Ehsan MD Unavailable Unavailable Sorge, C Ehsan MD Unavailable Unavailable Sorge, C Ehsan MD Unavailable Unavailable Sorge, C Ehsan MD Unavailable Unavailable Sorge, C Ehsan MD Unavailable Unavailable Sorge, C Ehsan MD Unavailable Unavailable Sorge, C Ehsan MD Unavailable Unavailable Sorge, C Ehsan MD Unavailable Unavailable Sorge, C Ehsan MD Unavailable Unavailable Sorge, C Ehsan MD Unavailable Unavailable Sorge, C Ehsan MD Unavailable Unavailable Sorge, C Ehsan MD Unavailable Unavailable Sorge, C Ehsan MD Unavailable Unavailable Sorge, C Ehsan MD Unavailable Unavailable Sorge, C Ehsan MD Unavailable Unavailable Sorge, C Ehsan MD Unavailable Unavailable Sorge, C Ehsan MD Unavailable Unavailable MD MAGGY GARCIAIQ Unavailable Unavailable ANDRE, ZENIA PA Unavailable Unavailable ANDRE, ZENIA PA Unavailable Unavailable ANDRE, ZENIA PA Unavailable Unavailable ANDRE, ZENIA PA Unavailable Unavailable ANDRE, ZENIA PA Unavailable Unavailable ANDRE, ZENIA PA Unavailable Unavailable ANDRE, ZENIA PA Unavailable Unavailable ANDRE, ZENIA PA Unavailable Unavailable ANDRE, ZENIA PA Unavailable Unavailable ANDRE, ZENIA PA Unavailable Unavailable ANDRE, ZENIA PA Unavailable Unavailable ANDRE, ZENIA PA Unavailable Unavailable ANDRE, ZENIA PA Unavailable Unavailable ANDRE, ZENIA PA Unavailable Unavailable Tu, E Narciso DO Unavailable Unavailable Tu, E Narciso DO Unavailable Unavailable Tu, E Narciso DO Unavailable Unavailable Tu, E Narciso DO Unavailable Unavailable Tu, E Narciso DO Unavailable Unavailable Tu, E Narciso DO Unavailable Unavailable Tu, E Narciso DO Unavailable Unavailable Tu, E Narciso DO Unavailable Unavailable Tu, E Narciso DO Unavailable Unavailable Tu, E Narciso DO Unavailable Unavailable Tu, E Narciso DO Unavailable Unavailable Tu, E Narciso DO Unavailable Unavailable Tu, E Narciso DO Unavailable Unavailable Tu, E Narciso DO Unavailable Unavailable Tu, E Narciso DO Unavailable Unavailable Tu, E Narciso DO Unavailable Unavailable Tu, E Narciso DO Unavailable Unavailable Tu, E Narciso DO Unavailable Unavailable Tu, E Narciso DO Unavailable Unavailable Tu, E Narciso DO Unavailable Unavailable Tu, E Narciso DO Unavailable Unavailable Tu, E Narciso DO Unavailable Unavailable Tu, E Narciso DO Unavailable Unavailable Tu, E Narciso DO Unavailable Unavailable Tu, E Narciso DO Unavailable Unavailable Tu, E Narciso DO Unavailable Unavailable Agustín Joseph JR, MD Unavailable Unavailable Agustín Joseph JR, MD Unavailable Unavailable Agustín Joseph JR, MD Unavailable Unavailable Agustín Joseph JR, MD Unavailable Unavailable Agustín Joseph JR, MD Unavailable Unavailable Agustín oJseph JR, MD Unavailable Unavailable Agustín Joseph JR, MD Unavailable Unavailable Agustín Joseph JR, MD Unavailable Unavailable Agustín Joseph JR, MD Unavailable Unavailable Agustín Joseph JR, MD Unavailable Unavailable Agustín Joseph JR, MD Unavailable Unavailable Agustín Joseph JR, MD Unavailable Unavailable Agustín Joseph JR, MD Unavailable Unavailable Agustín Joseph JR, MD Unavailable Unavailable Agustín Joseph JR, MD Unavailable Unavailable Agustín Joseph JR, MD Unavailable Unavailable Agustín Joseph JR, MD Unavailable Unavailable Agustín Joseph JR, MD Unavailable Unavailable Agustín Joseph JR, MD Unavailable Unavailable Agustín Joseph JR, MD Unavailable Unavailable Agustín Joseph JR, MD Unavailable Unavailable Agustín Joseph JR, MD Unavailable Unavailable Agustín Joseph JR, MD Unavailable Unavailable Agustín Joseph JR, MD Unavailable Unavailable Agustín Joseph JR, MD Unavailable Unavailable Agustín Joseph JR, MD Unavailable Unavailable Agustín Joseph JR, MD Unavailable Unavailable Agustín Joseph JR, MD Unavailable Unavailable Agustín Joseph JR, MD Unavailable Unavailable Agustín Joseph JR, MD Unavailable Unavailable Agustín Joseph JR, MD Unavailable Unavailable Agustín Joseph JR, MD Unavailable Unavailable Agustín Joseph JR, MD Unavailable Unavailable Agustín Joseph JR, MD Unavailable Unavailable Agustín Joseph JR, MD Unavailable Unavailable Agustín Joseph JR, MD Unavailable Unavailable Agustín Joseph JR, MD Unavailable Unavailable Agustín Joseph JR, MD Unavailable Unavailable Agustín Joseph JR, MD Unavailable Unavailable Agustín Joseph JR, MD Unavailable Unavailable Agustín Joseph JR, MD Unavailable Unavailable Agustín Joseph JR, MD Unavailable Unavailable Agustín Joseph JR, MD Unavailable Unavailable Agustín Joseph JR, MD Unavailable Unavailable Agustín Joseph JR, MD Unavailable Unavailable Agustín Joseph JR, MD Unavailable Unavailable Agustín Joseph JR, MD Unavailable Unavailable Agustín Joseph JR, MD Unavailable Unavailable Agustín Joseph JR, MD Unavailable Unavailable Agustín Joseph JR, MD Unavailable Unavailable Agustín Joseph JR, MD Unavailable Unavailable Agustín Joseph JR, MD Unavailable Unavailable Agustín Joseph JR, MD Unavailable Unavailable Agustín Joseph JR, MD Unavailable Unavailable Re-disclosure Warning The records that you are about to access may contain information from federally-assisted alcohol or drug abuse programs. If such information is present, then the following federally mandated warning applies: This information has been disclosed to you from records protected by federal confidentiality rules (42 CFR part 2). The federal rules prohibit you from making any further disclosure of this information unless further disclosure is expressly permitted by the written consent of the person to whom it pertains or as otherwise permitted by 42 CFR part 2. A general authorization for the release of medical or other information is NOT sufficient for this purpose. The Federal rules restrict any use of the information to criminally investigate or prosecute any alcohol or drug abuse patient.The records that you are about to access may contain highly sensitive health information, the redisclosure of which is protected by Article 27-F of the [facility] Public Health law. If you continue you may have access to information: Regarding HIV / AIDS; Provided by facilities licensed or operated by the [facility] Office of Mental Health; or Provided by the [facility] Office for People With Developmental Disabilities. If such information is present, then the following [facility] mandated warning applies: This information has been disclosed to you from confidential records which are protected by state law. State law prohibits you from making any further disclosure of this information without the specific written consent of the person to whom it pertains, or as otherwise permitted by law. Any unauthorized further disclosure in violation of state law may result in a fine or nursing home sentence or both. A general authorization for the release of medical or other information is NOT sufficient authorization for further disc losure. Allergies and Adverse Reactions Type Description Substance Reaction Status Data Source(s ) Miscellaneous allergy No Known Environmental Allergies No Kn own Environmental Allergies [place] [facility] Miscellaneous allergy No Known Food Allergies No Known Food Allergies [facility] Drug allergy DEMEROL DEMEROL Vomiting UNKNOWN [place] [facility] Drug allergy CLAVULANIC ACID CLAVULANIC ACID [place] [facility] Drug allergy FENTANYL FENTANYL VOMITING MILD [facility] Drug allergy AMOXICILLIN AMOXICILLIN VOMITING MILD [facility] Drug allergy AMPICILLIN AMPICILLIN NAUESA MODERATE [facility] Encounters Encounter Providers Location Date Indications Data Source(s ) Outpatient Attender: LETTY GAIVRIA [facility] 04/28/2021 08:03:00 AM EDT - 04/28/2021 08:03:00 AM EDT Outpatient Attender: WARREN Terrazas nder: REFERRING OTHERAdmitter: WARREN ARZATEQUIConsultant: Ehsan Jimenes MD 008 04/24/2021 07:50: 00 AM EDT - 04/24/2021 07:50:00 AM EDT LAB TEST [facility] LAB TEST Outpatient Attender: TIMMY JACKLYN SHANNON CPSCAORT-CPSLAOPT 01:42:00 PM EDT - 02/24/2021 01:43:00 PM EDT [facility] Patient discharged. Outpatient Attender: LETTY GAVIRIA DPM PC 02/18/2021 10:50:00 AM EDT - 02/18/2021 10:50:00 AM EDT Outpatient Attender: BAILEE GALVAN MD [id number].GVR 02/06/2021 12:00:00 AM EDT [facility] Outpatient Attender: Ehsan Escamilla mitter: Ehsan Jimenes MDReferrer: Ehsan Jimenes MDConsultant: Ehsan Jimenes MD 01/16/2021 11:29: 00 AM EDT - 02/15/2021 09:56:00 AM EDT Physical therapy [facility] Physical therapy Patient discharged. Outpatient Attender: Ehsan Escamilla mitter: Ehsan Jimenes MDConsultant: Ehsan Jimenes MD 12/17/2020 11:46:00 AM EDT - 01/15/2021 11:19:00 AM EDT Physical therapy [facility] Physical therapy Patient discharged. Outpatient Attender: LETTY GAVIRIA DPM PC 12/10/2020 10:29:00 AM EDT - 12/10/2020 10:29:00 AM EDT Outpatient Attender: Wale Miles lora: REFERRING OTHERAdmitter: Wale Shermansultant: Ehsan Jimenes MD 008 11/21/2020 08:18:00 AM EDT - 11/21/2020 08:18:00 AM EDT LAB TEST [facility] LAB TEST Outpatient Attender: Narciso Urrutia mitter: Narciso Mae DOConsultant: Ehsan Jimenes MD 11/18/2020 02:21:00 PM EDT - 12/16/2020 09:11:00 AM EDT Physical therapy [facility] Physical therapy Patient discharged. Outpatient Attender: Narciso Urrutia mitter: Narciso Mae DOConsultant: Ehsan Jimenes MD 008 11/07/2020 10:50:00 AM EDT - 11/07/2020 10:50:00 AM EDT Radiological examination [facility] Radiological examination Outpatient Attender: Narciso Urrutia mitter: Narciso Mae DOReferrer: Narciso Mae DOConsultant: Ehsan Jimenes MD 11/05/2020 07:49 :00 AM EDT - 11/05/2020 08:40:00 AM EDT Encounter for adult annual physical exam [facility] Encounter for adult annual physical exam Patient discharged. Outpatient Attender: Narciso Urrutia mitter: Narciso Mae DOConsultant: Ehsan Jimenes MD 008 10/29/2020 07:25:00 AM EDT - 10/29/2020 07:25:00 AM EDT Lab test [facility] Lab test Outpatient Attender: DR TAY Jaime er: DR CROSS TRANConsultant: Ehsan Jimenes MD 10/18/2020 04:22:00 PM EDT - 11/15/2020 12:10:00 PM EDT Physical therapy [facility] Physical therapy Patient discharged. Outpatient Attender: LETTY ANDREWS 09/26/2020 10:17:00 AM EST - 09/26/2020 10:17:00 AM EST Outpatient Attender: Yoon Quiroz RNPReferrer: Yoon Benitez NP SJP-[email or web address].GVR 09/24/2020 09:50:59 AM EST - 09/24/2020 11:06:26 AM EST [facility] Outpatient Attender: SYMONE Senior becky: DR ZHAO OTHERAdmitter: SYMONE PORTILLOConsultant: Ehsan Jimenes MD 008 08/27/2020 08:21 :00 AM EST - 08/27/2020 08:21:00 AM EST Lab test [facility] Lab test Patient discharged. Outpatient Attender: Narciso Urrutia mitter: Narcsio Mae DOConsultant: Ehsan Jimenes MD 07/19/2020 09:02:00 AM EST - 08/18/2020 04:30:00 PM EST Physical therapy [facility] Physical therapy Patient discharged. Outpatient Attender: LETTY GAVIRIA DPM PC 07/17/2020 10:27:00 AM EST - 07/17/2020 10:43:00 AM EST Outpatient Attender: Yoon ABILON [email or web address].GVR 06/27/2020 12:00:00 AM EST [facility] Outpatient Attender: Narciso Urrutia mitter: Narciso Mae DOConsultant: Ehsan Jimenes MD 06/18/2020 11:15:00 AM EST - 07/18/2020 12:37:00 PM EST PHYSICAL THERAPY [facility] PHYSICAL THERAPY Patient discharged. Office Visit Attender: Piter Hughes/Bia/Andres/Rein dl 05/13/2020 10:40:00 AM EDT [facility] ([facility] Outpatient Attender: LETTY GAVIRIA DPM PC 05/08/2020 09:14:00 AM EDT - 05/08/2020 09:14:00 AM EDT Office Visit Attender: Vik Hughes/Bia/Andres/Boo ndl 05/07/2020 03:00:00 PM EDT [facility] ([facility] Outpatient Attender: Narciso Urrutia mitter: Narciso HALEYeferrer: Narciso LANDonsultant: Ehsan Jimenes MD 05/07/2020 07:51 :00 AM EDT - 05/07/2020 08:40:00 AM EDT Preop exam [facility] Preop exam Patient discharged. Outpatient Admitter: Piter Joseph JRReferrer: Piter Joseph JR 05/02/2020 12:00:00 AM EDT Malignant neoplasm of colon, unspecified [facility] Malignant neoplasm of colon, unspecified Outpatient Attender: Narciso Urrutia mitter: Narciso Herreraerrer: Narciso Mae DOConsultant: Ehsan Jimenes MD 04/16/2020 02:23 :00 PM EDT - 04/16/2020 03:00:00 PM EDT Preop examination [facility] Preop examination Patient discharged. Outpatient Attender: Piter Hughes/Bia/Andres/Celia dickerson 04/10/2020 03:30:00 PM EDT [facility] ([facility]) Outpatient Attender: ZENIA ANGELES dmitter: ZENIA POWELL PAConsultant: Ehsan Jimenes MD 03/19/2020 01:36:38 PM EDT - 04/17/2020 03:31:00 PM EDT Physical therapy [facility] Physical therapy Patient discharged. Outpatient Attender: ZENIA ANGELES dmitter: ZENIA POWELL PAConsultant: Ehsan Jimenes MD 02/19/2020 12:41:00 PM EDT - 03/18/2020 01:35:00 PM EDT Physical therapy [facility] Physical therapy Patient discharged. Immunizations Vaccine Date Status Description Data Source(s) COVID-19 VACCINE Moderna 10/11/2020 12:00:00 AM EDT completed XanEduSIIS Vaccine Series Complete: YESThis Data wa s Submitted to [facility] Via [email or web address]. Medications Medication Brand Name Start Date Product Form Dose Route Admi nistrative Instructions Pharmacy Instructions Status Indications Reaction Description Data Source(s) Metronidazole 500 MG Oral Tablet [Flagyl] Flagyl 04/17/2020 12:00 :00 AM EDT ORAL completed [facility] ([facility], ) Neomycin Sulfate 500 MG Oral Tablet Neomycin Sulfate 04/17/2020 12:00:00 AM EDT ORAL completed [facility] ([facility], ) Suprep Bowel Prep Kit Suprep Bowel Prep Kit 04/17/2020 12:00:00 AM EDT completed [facility] ([facility], ) ferrous gluconate 324 MG Oral Tablet Ferrous Gluconate 324 (37.5 Fe) MG TABS Ferrous Gluconate 324 (37.5 Fe) MG TABS 2 {tbl} Oral aborted Take 2 tablets by mouth daily [facility] Insurance Providers Payer name Policy type / Coverage type Policy ID Covered green party ID Covered green party's relationship to [place] Policy [place] Plan Information MEDICARE [id number] xxxxxxxxxxx [id number] MEDICARE [id number] Mary [id number] MEDICARE A [id number] Self [id number] EXCELLUS BCBS [id number] [phone] [id number] EXCELLUS BCBS [id number] Mary [id number] [id number] EXCELLUS H [id number] Self [id number] MEDICARE [id number] S [id number] EXCELLUS BC/BS DOMITILA MANAGE CARE-RECURRING BC [id number] undefined [id number] MEDICARE -RECURRING [id number] undefined [id number] EXCELLUS [place]-OP BC [id number] unde fined [id number] [facility]-CLINIC [id number] undefined [id number] MEDICARE-CLINIC [id number] undefined [id number] O UNAVAILABLE UNAVAILA BLE MEDICARE -RECURRING [id number] undefined [id number] MEDICARE-OP [id number] undefined [id number] [facility] [place] [place] [id number] [facility] INSURANCE-CLINIC [id number] undef ined [id number] [facility] INSURANCE-OP [id number] undefined [id number] [place] PPO [id number] SP [id number] [facility] INSURANCE-CLINIC [id number] 18 [id number] MEDICARE [id number] SP [id number] [place]UE [place]OSS BLUE [place] [id number] 18 [id number] MEDICARE PART A [facility] [id number] 18 [id number] MEDICARE-OP [id number] undefined [id number] [place]LLUS BCBS [place] [id number] S [id number] Problems, Conditions, and Diagnoses Code Display Name Description Problem Type Effective Dates Data Source(s) C189 Malignant neoplasm of colon, unspecified Malignant neoplasm of colon, unspecified Diagnosis 04/24/2021 07:50:00 AM EDT [facility] H40.039 Anatomical narrow angle, unspecified eye ANATOMICAL NARROW ANGLE, UNSPECIFIED EYE Diagnosis 02/24/2021 01:42:00 PM EDT [facility] E11.9 Type 2 diabetes mellitus without complic ations TYPE 2 DIABETES MELLITUS WITHOUT COMPLICATIONS Diagnosis 02/24/2021 01:42:00 PM EDT [facility] H43.812 Vitreous degeneration, left eye VITREOUS DEGENER ATION, LEFT EYE Diagnosis 02/24/2021 01:42:00 PM EDT [facility] H16.223 Keratoconjunctivitis sicca, not specifie d as Sjogren's, bilateral KERATOCONJUNCT SICCA, NOT SPECIFIED SJOGREN'S, BILATERAL Diagnosis 02/24/2021 01:42:00 PM EDT [facility] H25.13 Age-related nuclear cataract, bilateral AGE-RELATED NUCLEAR CATARACT, BILATERAL Diagnosis 02/24/2021 01:42:00 PM EDT [facility] E11.9 Type 2 diabetes mellitus without complic ations Type 2 diabetes mellitus without complic Diagnosis 02/06/2021 07:54:52 AM EDT [facility] R06.02 Shortness of breath Shortness of breath Diagnosis 0 02/06/2021 07:54:52 AM EDT [facility] I10 Essential (primary) hypertension Essential (primary) h ypertension Diagnosis 02/06/2021 07:54:52 AM EDT [facility] R94.31 Abnormal electrocardiogram [ECG] [EKG] A bnormal electrocardiogram (ECG) (EKG) Diagnosis 02/06/2021 07:54:52 AM EDT [facility] I49.3 Ventricular premature depolarization Ventricular premature depolarization Diagnosis 02/06/2021 07:54:52 AM EDT [facility] E78.5 Hyperlipidemia, unspecified Hyperlipidemia, unspecifie d Diagnosis 02/06/2021 07:54:52 AM EDT [facility] R5381 Other malaise Other malaise Diagnosis 01/16/2021 11:29:00 AM EDT [facility] R54 Age-related physical debility Age-related physical renan ility Diagnosis 12/[facility] Age-related osteoporosis without current pathological fracture Age-related osteoporosis without current pathological fracture Diagnosis [facility] E559 Vitamin D deficiency, unspecified Vitamin D defi ciency, unspecified Diagnosis 11/05/2020 07:49:00 AM EDT [facility] E785 Hyperlipidemia, unspecified Hyperlipidemia, unspecifie d Diagnosis 11/05/2020 [facility] E119 Type 2 diabetes mellitus without complic ations Type 2 diabetes mellitus without complications Diagnosis [facility] Essential (primary) hypertension Essential (primary) h ypertension Diagnosis 11/05/2020 07:49:[address] [facility] C3490 Malignant neoplasm of unspecified part o f unspecified bronchus or lung Malignant neoplasm of unspecified part of unspecified bronchus or lung Diagnosis 11/05/2020 07:49:[address] [facility] Z0000 Encounter for general adult medical exam ination without abnormal findings Encounter for general adult medical examination without abnormal findings Diagnosis 11/05/2020 07:49:[address] 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 Diagnosis 09/26/2020 10:17:00 AM EST I31.3 Pericardial effusion (noninflammatory) P ericardial effusion (noninflammatory) Diagnosis 09/24/2020 09:50:59 AM EST [facility] Z5189 Encounter for other specified aftercare Encounter for other specified aftercare Diagnosis 07/19/2020 09:02:00 AM EST [facility] C182 Malignant neoplasm of ascending colon Ma lignant neoplasm of ascending colon Diagnosis 05/07/2020 07:51:00 AM EDT [facility] C18.9 Malignant neoplasm of colon, unspecified Malignant neoplasm of colon, unspecified Diagnosis 05/02/2020 02:33:00 PM EDT [facility] R47799 Encounter for other preprocedural examin ation Encounter for other preprocedural examination Diagnosis 04/16/2020 02:23:00 PM EDT [facility] Surgeries/Procedures Procedure Description Date Indications Data Source(s) Hospital outpatient clinic visit for assessment and ma nagement of a patient Hospital Outpatient Clinic Visit 02/24/2021 12:00:00 AM EDT [facility] Pare Hyperkeratotic Lesion, 2-4 02/18/2021 12:00:00 AM EDT [facility] ( [facility]) Debridement Nails Any Method 1-5 02/18/2021 12:00:00 A M EDT [facility] ([facility]) Pare Hyperkeratotic Lesion, 2-4 12/10/2020 12:00:00 AM EDT [facility] ([facility]) Debridement Nails Any Method 1-5 12/10/2020 12:00:00 A M EDT [facility] ([facility]) Pare Hyperkeratotic Lesion, 2-4 09/26/2020 12:00:00 AM EST [facility] ([facility]) Debridement Nails Any Method 1-5 09/26/2020 12:00:00 A M EST [facility] ([facility]) Pare Hyperkeratotic Lesion, 2-4 07/17/2020 12:00:00 AM EST [facility] ([facility]) Debridement Nails Any Method 1-5 07/17/2020 12:00:00 A M EST [facility] ([facility]) ECG ROUTINE ECG W/LEAST 12 LDS W/I&R <td>POCT AMB EKG</td><td>Routine</td><td>06/27/2020 6:53 PM EST</td><td> Premature ventricular contractions Essential hypertension Abnormal EKG</td><td> </td> 06/27/2020 11:53:00 PM EST Abnormal EKGEssential hypertensionPremature ventricula r contractions [facility] Abnormal EKG Essential hypertension Premature ventricular contractions Pare Hyperkeratotic Lesion, 2-4 05/08/2020 12:00:00 AM EDT [facility] ([facility]) Debridement Nails Any Method 1-5 05/08/2020 12:00:00 A M EDT [facility] ([facility]) Laparoscopic Hemicolectomy W/ Anastomosis 04/26/2020 1 2:00:00 AM EDT [facility] ([facility], ) Laparoscopic Hemicolectomy W/ Anastomosis 04/26/2020 1 2:00:00 AM EDT [facility] ([facility], ) Endoscopy Upper GI Biopsy 04/02/2020 12:00:00 AM EDT [facility] ([facility], ) Colonoscopy Flexible Proximal To Splenic Flexure W/Biopsy Si ngle/ 04/02/2020 12:00:00 AM EDT [facility] ([facility], ) Colonoscopy,W/Directed Submucosal Injections, Any Substance 04/02/2020 12:00:00 AM EDT [facility] ([facility], ) Results ID Date Data Source [id number] 04/24/2021 07:58:00 AM EDT [facility] Name Value Range Interpretation Code Description Data Li rce(s) Supporting Document(s) [facility] l _CEA_CEAReported: 04/25/2021 08:05 Status=F RESULT FLAG RANGE UNITS SC --CEA 2.8 0.0-4.7 ng/mL RN 04/25/21.0805.rfl.COMPLETE.LCTR Nonsmokers <3.9 Smokers <5.6 . [facility] Electrochemiluminescence Immunoassay (ECLIA) . Values obtained with different assay methods or kits cannot be used interchangeably. Results cannot be interpreted as absolute evidence of the presence or absence of malignant di sease.RN Test performed by: [email or web address] [address] [id number] Andreea Kumar MD ID Date Data Source [id number] 04/24/2021 07:58:00 AM EDT [facility] Name Value Range Interpretation Code Description Data Li rce(s) Supporting Document(s) COMPREHENSIVE CHEM PROFILE [facility] COMPREHENSIVE METABOLIC PANEL Sodium [Moles/volume] in Serum or Plasma 143 mEq/L 136 - 145 [facility] Potassium [Moles/volume] in Serum or Plasma 3.7 mEq/L 3.5 - 5.1 [facility] Chloride [Moles/volume] in Serum or Plasma 105 mEq/L 98 - 107 [facility] Carbon dioxide, total [Moles/volume] in Serum or Plasma 27.6 mEq /L 21.0 - 32.0 [facility] Glucose [Mass/volume] in Serum or Plasma 99 mg/dL 70 - 100 [facility] Urea nitrogen [Mass/volume] in Serum or Plasma 21 mg/dL 7 - 18 Above high normal [facility] CREATININE SERUM 0.99 mg/dL 0.55 - 1.02 [facility] AGE 65 yrs [facility] HEIGHT NA [facility] eGFR NON-AFR AMR 56 [facility] eGFR AFR AMR >60 [facility] BUN/CREAT 21 6 - 25 [facility] Protein [Mass/volume] in Serum or Plasma 7.9 g/dL 6.0 - 8.3 [facility] Albumin [Mass/volume] in Serum or Plasma 3.8 g/dL 3.8 - 5.4 [facility] GLOBULIN 4.1 g/dL 2.0 - 4.0 Above high normal [facility] A/G RATIO 0.9 0.8 - 2.0 [facility] Calcium [Mass/volume] in Serum or Plasma 10.2 mg/dL 8.8 - 10.2 [facility] Bilirubin.total [Mass/volume] in Serum or Plasma 0.9 mg/dL 0.2 - 1.0 [facility] Bilirubin.direct [Mass/volume] in Serum or Plasma 0.1 mg/dL 0.0 - 0. 2 [facility] INDIRECT BILI 0.8 mg/dL 0.0 - 1.1 [facility] pital ALK PHOSPHATASE 84 U/L 35 - 104 [facility] Aspartate aminotransferase [Enzymatic ac tivity/volume] in Serum or Plasma by With P-5'-P 18 IU/L 7 - 37 [facility] Alanine aminotransferase [Enzymatic acti vity/volume] in Serum or Plasma by With P-5'-P 28 IU/L 12 - 78 [facility] ANION GAP 10 7 - 15 [facility] Estimated GFR referenc e range: >60ml/min/1.73m >18 years: Calculated using IDMI traceable Study Equation <18 years: Calculated using [facility] tracable Bedside Schartz Equation ID Date Data Source [id number] 04/24/2021 07:58:00 AM EDT [facility] Name Value Range Interpretation Code Description Data Li rce(s) Supporting Document(s) CBC [facility] COMPLETE BLOOD COUNT Leukocytes [#/volume] in Blood by Automated count 4.9 K/uL 4.0 - 10 .0 [facility] Erythrocytes [#/volume] in Blood by Automated count 3.99 M/uL 4.00 - 5.40 Below low normal [facility] Hemoglobin [Mass/volume] in Blood 12.5 g/dL 12.0 - 15.5 [facility] Hematocrit [Volume Fraction] of Blood by Automated count 36.1 % 3 6.0 - 44.5 [facility] Erythrocyte mean corpuscular volume [Entitic volume] by Auto mated count 90.5 fL 80.0 - 96.0 [facility] Erythrocyte mean corpuscular hemoglobin [Entitic mass] by Automated count 31.3 pg 26.0 - 34.0 [facility] Erythrocyte mean corpuscular hemoglobin concentration [Mass/volume] by Automated count 34.6 g/dL 32.0 - 36.0 [facility] Erythrocyte distribution width [Ratio] by Automated count 12.2 % 11.6 - 14.8 [facility] Platelets [#/volume] in Blood by Automated count 252 K/uL 150 - 450 [facility] Platelet mean volume [Entitic volume] in Blood by Automated count 9.4 fL 7.1 - 10.4 [facility] Neutrophils [#/volume] in Blood by Automated count 2.36 K/uL 1.70 - 7.70 [facility] Lymphocytes [#/volume] in Blood by Automated count 1.71 K/uL 1.50 - 6.00 [facility] Monocytes [#/volume] in Blood by Automated count 0.64 K/uL 0.00 - 1. 00 [facility] Eosinophils [#/volume] in Blood by Automated count 0.13 K/uL 0.03 - 0.48 [facility] Basophils [#/volume] in Blood by Automated count 0.09 K/uL 0.01 - 0.08 Above high normal [facility] 0.01 Urinalysis macro (dipstick) panel - Urine 0.000 10^3/uL 0.000 - 0.012 [facility] Neutrophils/100 leukocytes in Blood by Automated count 47.8 % 42. 0 - 75.0 [facility] Lymphocytes/100 leukocytes in Blood by Automated count 34.6 % 15. 0 - 41.0 [facility] Monocytes/100 leukocytes in Blood by Automated count 13.0 % 0.0 - 12.0 Above high normal [facility] Eosinophils/100 leukocytes in Blood by Automated count 2.6 % 0.0 - 7.0 [facility] 1.80.20 NRBC 0.0 % [facility] MANUAL DIFF NOT INDICATED [facility] RBC MORPH NOT INDICATED [facility] ID Date Data Source [id number] 11/21/2020 08:30:00 AM EDT [facility] Name Value Range Interpretation Code Description Data Li e(s) Supporting Document(s) [facility] l _CEA_CEAReported: 11/22/2020 08:05 Status=F RESULT FLAG RANGE UNITS SC --CEA 2.8 0.0-4.7 ng/mL RN 11/22/20.0805.rfl.COMPLETE.LCTR Nonsmokers <3.9 Smokers <5.6 . [facility] Electrochemiluminescence Immunoassay (ECLIA) . Values obtained with different assay methods or kits cannot be used interchangeably. Results cannot be interpreted as absolute evidence of the presence or absence of malignant di sease.RN Test performed by: [address] [id number] Andreea Kumar MD ID Date Data Source [id number] 11/21/2020 08:30:00 AM EDT [facility] Name Value Range Interpretation Code Description Data Li rce(s) Supporting Document(s) FERRITIN 53 ng/mL 8 - 252 [facility] ID Date Data Source [id number] 11/21/2020 08:30:00 AM EDT [facility] Name Value Range Interpretation Code Description Data Li rce(s) Supporting Document(s) IRON AND TIBC PROFILE [facility] IRON PROFILE Iron [Mass/volume] in Serum or Plasma 76 ug/mL 50 - 170 [facility] Iron binding capacity [Mass/volume] in Serum or Plasma 312 ug/dL 250 - 450 [facility] IRON SAT 24 % [facility] ID Date Data Source [id number] 11/21/2020 08:30:00 AM EDT [facility] Name Value Range Interpretation Code Description Data Li rce(s) Supporting Document(s) COMPREHENSIVE CHEM PROFILE i [facility] COMPREHENSIVE METABOLIC PANEL Sodium [Moles/volume] in Serum or Plasma 143 mEq/L 136 - 145 [facility] Potassium [Moles/volume] in Serum or Plasma 3.9 mEq/L 3.5 - 5.1 [facility] Chloride [Moles/volume] in Serum or Plasma 104 mEq/L 98 - 107 [facility] Carbon dioxide, total [Moles/volume] in Serum or Plasma 28.9 mEq /L 21.0 - 32.0 [facility] Glucose [Mass/volume] in Serum or Plasma 101 mg/dL 70 - 100 Above high normal [facility] Urea nitrogen [Mass/volume] in Serum or Plasma 20 mg/dL 7 - 18 Above high normal [facility] CREATININE SERUM 0.95 mg/dL 0.55 - 1.02 [facility] AGE 65 yrs [facility] HEIGHT NA [facility] eGFR NON-AFR AMR 59 [facility] eGFR AFR AMR >60 [facility] BUN/CREAT 21 6 - 25 [facility] Protein [Mass/volume] in Serum or Plasma 7.6 g/dL 6.0 - 8.3 [facility] Albumin [Mass/volume] in Serum or Plasma 3.6 g/dL 3.8 - 5.4 Below low normal [facility] GLOBULIN 4.0 g/dL 2.0 - 4.0 [facility] A/G RATIO 0.9 0.8 - 2.0 [facility] Calcium [Mass/volume] in Serum or Plasma 9.4 mg/dL 8.8 - 10.2 [facility] Bilirubin.total [Mass/volume] in Serum or Plasma 0.8 mg/dL 0.2 - 1.0 [facility] Bilirubin.direct [Mass/volume] in Serum or Plasma 0.1 mg/dL 0.0 - 0. 2 [facility] INDIRECT BILI 0.7 mg/dL 0.0 - 1.1 [facility] pital ALK PHOSPHATASE 80 U/L 35 - 104 [facility] Aspartate aminotransferase [Enzymatic ac tivity/volume] in Serum or Plasma by With P-5'-P 18 IU/L 7 - 37 [facility] Alanine aminotransferase [Enzymatic acti vity/volume] in Serum or Plasma by With P-5'-P 26 IU/L 12 - 78 [facility] ANION GAP 10 7 - 15 [facility] Estimated GFR referenc e range: >60ml/min/1.73m >18 years: Calculated using IDMS traceable Study Equation <18 years: Calculated using [employer]MS tracable Bedside Schartz Equation ID Date Data Source [id number] 11/21/2020 08:30:00 AM EDT [facility] Name Value Range Interpretation Code Description Data Li rce(s) Supporting Document(s) CBC [facility] COMPLETE BLOOD COUNT Leukocytes [#/volume] in Blood by Automated count 5.0 K/uL 4.0 - 10 .0 [facility] Erythrocytes [#/volume] in Blood by Automated count 3.96 M/uL 4.00 - 5.40 Below low normal [facility] Hemoglobin [Mass/volume] in Blood 12.5 g/dL 12.0 - 15.5 [facility] Hematocrit [Volume Fraction] of Blood by Automated count 36.4 % 3 6.0 - 44.5 [facility] Erythrocyte mean corpuscular volume [Entitic volume] by Auto mated count 91.9 fL 80.0 - 96.0 [facility] Erythrocyte mean corpuscular hemoglobin [Entitic mass] by Automated count 31.6 pg 26.0 - 34.0 [facility] Erythrocyte mean corpuscular hemoglobin concentration [Mass/volume] by Automated count 34.3 g/dL 32.0 - 36.0 [facility] Erythrocyte distribution width [Ratio] by Automated count 12.2 % 11.6 - 14.8 [facility] Platelets [#/volume] in Blood by Automated count 267 K/uL 150 - 450 [facility] Platelet mean volume [Entitic volume] in Blood by Automated count 9.0 fL 7.1 - 10.4 [facility] Neutrophils [#/volume] in Blood by Automated count 2.44 K/uL 1.70 - 7.70 [facility] Lymphocytes [#/volume] in Blood by Automated count 1.75 K/uL 1.50 - 6.00 [facility] Monocytes [#/volume] in Blood by Automated count 0.53 K/uL 0.00 - 1. 00 [facility] Eosinophils [#/volume] in Blood by Automated count 0.17 K/uL 0.00 - 0.30 [facility] Basophils [#/volume] in Blood by Automated count 0.08 K/uL 0.00 - 0. 10 [facility] 0.01 Urinalysis macro (dipstick) panel - Urine 0.000 10^3/uL 0.000 - 0.012 [facility] Neutrophils/100 leukocytes in Blood by Automated count 49.1 % 42. 2 - 75.2 [facility] Lymphocytes/100 leukocytes in Blood by Automated count 35.1 % 15. 0 - 41.0 [facility] Monocytes/100 leukocytes in Blood by Automated count 10.6 % 0.0 - 12.0 [facility] Eosinophils/100 leukocytes in Blood by Automated count 3.4 % 0.0 - 7.0 [facility] 1.60.20 NRBC 0.0 % [facility] DIFF NOT INDICATED [facility] RBC MORPH NOT INDICATED [facility] ID Date Data Source [id number] 11/08/2020 01:42:43 PM EDT [facility] [address] [id number] TELEPHONE RADIOLOGY DEPARTMENT Name: [facility] #: [id number] : PATBDAY Ordering Physician: TU BEYER Sex: F Date: 11/07/20 Admission Type: O/P X-ray Number: [id number] Unsigned Transcriptions are preliminary reports and do not represent a Medical or Legal Document \\CTNo\\ XRAY DENSITOMETRY [id number] COMPLETE:11/07/20 13:25 BBS 60659 (SPINE PROCED REASON: Bone Density Screening \\CTNx\\ SEE SCANNED BONE DENSITY Dictating Initials: GMM Transcribe Date: 11/08/20 13:42 Transcribe Initials: BBS Name Value Range Interpretation Code Description Data Li rce(s) Supporting Document(s) ID Date Data Source [id number] 10/29/2020 08:15:00 AM EDT [facility] Name Value Range Interpretation Code Description Data Li rce(s) Supporting Document(s) MICROALBUMIN PANEL RANDOM UR [facility] MICROALBUMIN PANEL RANDOM URI NE Creatinine [Mass/volume] in Urine 141.7 mg/dL 30.0 - 125 Above high n ormal [facility] MICROALBUMIN 7.60 mg/L [facility] ALB/CREAT 5.4 mg/g 0.0 - 30.0 [facility] ID Date Data Source [id number] 10/29/2020 07:25:00 AM EDT [facility] Name Value Range Interpretation Code Description Data Li rce(s) Supporting Document(s) 25-OH VITAMIN D 51.5 ng/mL 30.0 - 100 [facility] Deficient < 20 ng/mL Insufficient 20 - < 30 ng/mL Sufficient 30 - 100 ng/mL 25-OH vitamin D reference values based on the Clinical Guidelines Subcommittee of the Endocrine Society Task Force. Biotin can interfere with 25-OH Vitamin D results if taken 48 hours prior to specimen collection. ID Date Data Source [id number] 10/29/2020 07:25:00 AM EDT [facility] Name Value Range Interpretation Code Description Data Li rce(s) Supporting Document(s) Hemoglobin A1c/Hemoglobin.total in Blood 6.4 % 4.0 - 5.6 Above high normal [facility] Glucose mean value [Mass/volume] in Blood Estimated fr om glycated hemoglobin 137 mg/dL [facility] \\BLDo\\HEMOGLO BIN A1C\\BLDx\\ 4.0 - 5.6%: Normal 5.7 - 6.4%: Suggests Impaired Glucose Metabolism > or = 6.5%: Abnormal Estimated average glucose calculated using ADAG Study formula as recommended by the [employer]. ID Date Data Source [id number] 10/29/2020 07:25:00 AM EDT [facility] Name Value Range Interpretation Code Description Data Li rce(s) Supporting Document(s) BASIC METABOLIC PANEL [facility] BASIC METABOLIC PANEL Sodium [Moles/volume] in Serum or Plasma 142 mEq/L 136 - 145 [facility] Potassium [Moles/volume] in Serum or Plasma 3.6 mEq/L 3.5 - 5.1 [facility] Chloride [Moles/volume] in Serum or Plasma 102 mEq/L 98 - 107 [facility] Carbon dioxide, total [Moles/volume] in Serum or Plasma 29.0 mEq /L 21.0 - 32.0 [facility] Glucose [Mass/volume] in Serum or Plasma 106 mg/dL 70 - 100 Above high normal [facility] Urea nitrogen [Mass/volume] in Serum or Plasma 20 mg/dL 7 - 18 Above high normal [facility] CREATININE SERUM 0.91 mg/dL 0.55 - 1.02 [facility] 65 [facility] eGFR NON-AFR AMR >60 [facility] eGFR AFR AMR >60 [facility] BUN/CREAT 22 6 - 25 [facility] Calcium [Mass/volume] in Serum or Plasma 9.5 mg/dL 8.8 - 10.2 [facility] ANION GAP 11 7 - 15 [facility] Estimated GFR reference r darian: > 60 mL/min/1.73m >18 years: Calculated using IDMS traceable MDRD Study Equation <18 years: Calculated using IDMS traceable Bedside Crandall Equation ID Date Data Source [id number] 10/29/2020 07:25:00 AM EDT [facility] Name Value Range Interpretation Code Description Data Li rce(s) Supporting Document(s) CBC [facility] COMPLETE BLOOD COUNT Leukocytes [#/volume] in Blood by Automated count 4.9 K/uL 4.0 - 10 .0 [facility] Erythrocytes [#/volume] in Blood by Automated count 3.81 M/uL 4.00 - 5.40 Below low normal [facility] Hemoglobin [Mass/volume] in Blood 11.9 g/dL 12.0 - 15.5 Below low no rmal [facility] Hematocrit [Volume Fraction] of Blood by Automated count 35.2 % 36.0 - 44.5 Below low normal [facility] Erythrocyte mean corpuscular volume [Entitic volume] by Auto mated count 92.4 fL 80.0 - 96.0 [facility] Erythrocyte mean corpuscular hemoglobin [Entitic mass] by Automated count 31.2 pg 26.0 - 34.0 [facility] Erythrocyte mean corpuscular hemoglobin concentration [Mass/volume] by Automated count 33.8 g/dL 32.0 - 36.0 [facility] Erythrocyte distribution width [Ratio] by Automated count 12.6 % 11.6 - 14.8 [facility] Platelets [#/volume] in Blood by Automated count 272 K/uL 150 - 450 [facility] Platelet mean volume [Entitic volume] in Blood by Automated count 9.1 fL 7.1 - 10.4 [facility] Neutrophils [#/volume] in Blood by Automated count 2.22 K/uL 1.70 - 7.70 [facility] Lymphocytes [#/volume] in Blood by Automated count 1.86 K/uL 1.50 - 6.00 [facility] Monocytes [#/volume] in Blood by Automated count 0.54 K/uL 0.00 - 1. 00 [facility] Eosinophils [#/volume] in Blood by Automated count 0.17 K/uL 0.00 - 0.30 [facility] Basophils [#/volume] in Blood by Automated count 0.08 K/uL 0.00 - 0. 10 [facility] 0.01 Urinalysis macro (dipstick) panel - Urine 0.000 10^3/uL 0.000 - 0.012 [facility] Neutrophils/100 leukocytes in Blood by Automated count 45.5 % 42. 2 - 75.2 [facility] Lymphocytes/100 leukocytes in Blood by Automated count 38.1 % 15. 0 - 41.0 [facility] Monocytes/100 leukocytes in Blood by Automated count 11.1 % 0.0 - 12.0 [facility] Eosinophils/100 leukocytes in Blood by Automated count 3.5 % 0.0 - 7.0 [facility] 1.60.20 NRBC 0.0 % [facility] MANUAL DIFF NOT INDICATED [facility] RBC MORPH NOT INDICATED [facility] ID Date Data Source [id number] 09/24/2020 11:19:24 PM EST [facility] Name Value Range Interpretation Code Description Data Li rce(s) Supporting Document(s) &PDF [facility] NJVUSn0dUwVVEbYk61/BRQbmFSYha8KiYQjcQXv2ZTztTAEvT5FuuUjgZKhAUiFJATBHDqCqSNFuLajc gU3 [file] AgICAgICAgICAgICAgICAgICAgICAgICAgICAgICAg ICAgICAgICAgICAgICAgICAgICAgICAgICAgICAgICAgICAgICAgICAgICAgICAgICAgICAgICAgICAN CiAgICAgICAgICAgICAgICAgICAgICAgICAgICAgICAgICAgICAgICAgICAgICAgICAgICAgICAgICAg ICAgICAgICAgICAgICAgICAgICAgICAgICAgICAgIC AgICAgICAgICANCiAgICAgICAgICAgICAgICAgICAgICAgICAgICAgICAgICAgICAgICAgICAgICAgIC AgICAgICAgICAgICAgICAgICAgICAgICAgICAgICAgICAgICAgICAgICAgICAgICAgICANCiAgICAgIC AgICAgICAgICAgICAgICAgICAgICAgICAgICAgICAg ICAgICAgICAgICAgICAgICAgICAgICAgICAgICAgICAgICAgICAgICAgICAgICAgICAgICAgICAgICAg ICANCiAgICAgICAgICAgICAgICAgICAgICAgICAgICAgICAgICAgICAgICAgICAgICAgICAgICAgICAg ICAgICAgICAgICAgICAgICAgICAgICAgICAgICAgIC AgICAgICAgICAgICANCiAgICAgICAgICAgICAgICAgICAgICAgICAgICAgICAgICAgICAgICAgICAgIC AgICAgICAgICAgICAgICAgICAgICAgICAgICAgICAgICAgICAgICAgICAgICAgICAgICAgICANCiAgIC AgICAgICAgICAgICAgICAgICAgICAgICAgICAgICAg ICAgICAgICAgICAgICAgICAgICAgICAgICAgICAgICAgICAgICAgICAgICAgICAgICAgICAgICAgICAg ICAgICANCiAgICAgICAgICAgICAgICAgICAgICAgICAgICAgICAgICAgICAgICAgICAgICAgICAgICAg ICAgICAgICAgICAgICAgICAgICAgICAgICAgICAgIC AgICAgICAgICAgICAgICANCiAgICAgICAgICAgICAgICAgICAgICAgICAgICAgICAgICAgICAgICAgIC AgICAgICAgICAgICAgICAgICAgICAgICAgICAgICAgICAgICAgICAgICAgICAgICAgICAgICAgICANCi AgICAgICAgICAgICAgICAgICAgICAgICAgICAgICAg ICAgICAgICAgICAgICAgICAgICAgICAgICAgICAgICAgICAgICAgICAgICAgICAgICAgICAgICAgICAg ICAgICAgICANCjw/iDYpM5vivYTabyO8U2bjUb3GAc9PII3if0ElVQPfBTkiqbElJkaRYzBlPXVcAdiY Xlo0AObbJF6GaHEcL0SdH2XzMPzpTE0TEYJnFBKyaZ XbQLGbWJQiFnI2PTGgUNgqGJ5CdDUfOJqsHLZtFLIvHfPkCFQrIE9HBXJjY379gqLtBy1QJn3TPsFcIE 0qth8JETKtINTaSdzOXgi5ZWgpVP8EmSExR2YtpDIwo1gZTlApU5QSRZP5RTCmRb1SGJJjHdSqOUZhTS ysVS5cUDRoSMWDrPxqejW2GY1EXH4fgiAePZ8GUgLi Zu5gQm2WZxGrR8FcQ9DcYZLiMLFTFPdiOK2YTHHjTDE0ELEvAFAkAXULPuClQ37aNT3XF4Otw91aCcD8 XNMxJfXlKYokMI92pQgrxeVetNRhdFvaIH7SZj1+DQplbmRvYmoNCnhyZWYNCjAgNDENCjAwMDAwMDAw UYXjEyW0JiPtTq2ONMDfCHLgATRwUjTuRYXsAXXuPP aoJTBlMMC3TAvyUMClUBUlBQ7XSdOtAHJfQwq7NEYfJFYfEZPzes4CIZWhFQReFTB4WdHgXIHzQTGfRA hoDDHgINCrXfI4YWVlUJObTE2HKyXqOPQzGDP7RiDeWVPtYBWygv6TDNYiUBCpCFk5KYXnGBAjDZQuLR ceVCBaWPA2KDqfKNLuDFUmKH4GIiJoSJWxXMN0HWGt PBGpMMFebl1MJUYlGYYePdDjOYPmKLUdTCMiZKsbCOYbUTK0HlF8RAArMHBcCT1HZrYoVDOmCVjwVpco TSDrSUAabi4YUVAhZBCxDDA1LCIwODGwHKCxIRxdHQAtDEO4WbJ2TJXxZSFxIE6ZNuZmIABnZVX9NrUe NOVpCTRhnk4IFIXpIUIjAej1HTWeDNTcXKZpIYqwDE YaTVV7JFOhFOKvJTBrAY2RXcGeYUFbSBYpGSAnLWGlMTFhlh2LHHDuQBHnFCW1QYTyCJInOYZmQBvxCW AtNZD0OpwnFGCvTZTrSM7INgDjLLRiDBC0CpcqMOQcBJLfev3WMJPdPZOgYFf2FKOcNUBmYDBjSXigIE GjKLIkIKG6OFZjDOMbRN1WFeZqNVCyFaQ7TJNuJNUe EGXsbh2XCEOjJEPrWUneMJWrVMJgGKLnIXilQSLaDTS7MBCaARYpFFVeKK8QXwQcUSDoXpGsAGhnIKZc TNDfww7FYWFjXYGzCeI3QgNaPOAgQUGpYDhvLNUrOUC1OBYnNOWwGVHgMY7VLaWlFAPfYhviEIuuTETf PGGinb0IQWNcHXE1RwIpTUBqYPImTBFkGRqyNKQyNS W3TVjrHCCmCKYlDJ0RJoVjVLSdMFfiSoSuVPScQNVmos6MMROzVGX7QeNmKMEtPIKrZPFzDJgjWQLgVU R4FNw0YQHfGUYlJN2AFfJhVLCsGHo3NEPeCIPzJGJnch9CIOIoSIC8Kdo1ThEkFXJgZKSoXBwwGOAqIB K7IDW2MTFtQDBoIT2CNvQbAUGvSsl1OUUkSQRrKFWg qx9IWHBqJZW2THm7QxNwSDEsIPMqRKp1znByeCZiDFn1IN3UC9JbymKdSZAUKr8Pr830KKZeZSJbAw0E G7zoWx9pMEZdEDTAFd3KSHm2QUSwYHQlTOEiXCvaTOp7VSWeJdWjXNEeZCX6AFUbAZW+IDxkYjBhZWUw NCTsODLiZKjzSQZyFAGdNcOtEMSpOJJzDO0kGSPMLo6+WGgdjPVpiIulUXKTHzK1ZRi2QUniCUIMKv7K ID Date Data Source [id number] 08/27/2020 08:23:00 AM EST [facility] Name Value Range Interpretation Code Description Data Li rce(s) Supporting Document(s) CEA wSERIAL MONITOR [id number] [facility] _CEA (SERIAL MONITOR) [id number] (S erial Monitor)Reported: 08/28/2020 16:05 Status=F --------TEST RESULT FLAG RANGE UNITS SC --CEA 3.4 0.0-4.7 ng/mL RN 08/28/20.1605.rfl.COMPLETE.LCTR Nonsmokers <3.9 Smokers <5.6 . [facility] Electrochemiluminescence Immunoassay (ECLIA) . Values obtained with different assay methods or kits cannot be used interchangeably. Results cannot be interpreted as absolute evidence of the presence or absence of malignant disease.RN Test performed by: [address] [address] Andreea Kumar MD ID Date Data Source [id number] 08/27/2020 08:23:00 AM EST [facility] Name Value Range Interpretation Code Description Data Li rce(s) Supporting Document(s) IRON AND TIBC PROFILE [facility] IRON PROFILE Iron [Mass/volume] in Serum or Plasma 91 ug/mL 50 - 170 [facility] Iron binding capacity [Mass/volume] in Serum or Plasma 306 ug/dL 250 - 450 [facility] IRON SAT 30 % Health [facility] l ID Date Data Source [id number] 08/27/2020 08:23:00 AM EST [facility] Name Value Range Interpretation Code Description Data Li rce(s) Supporting Document(s) FERRITIN 48 ng/mL 8 - 252 [facility] ID Date Data Source [id number] 08/27/2020 08:23:00 AM EST [facility] Name Value Range Interpretation Code Description Data Li rce(s) Supporting Document(s) COMPREHENSIVE CHEM PROFILE [facility] COMPREHENSIVE METABOLIC PANEL Sodium [Moles/volume] in Serum or Plasma 142 mEq/L 136 - 145 [facility] Potassium [Moles/volume] in Serum or Plasma 3.5 mEq/L 3.5 - 5.1 [facility] Chloride [Moles/volume] in Serum or Plasma 104 mEq/L 98 - 107 [facility] Carbon dioxide, total [Moles/volume] in Serum or Plasma 24.4 mEq /L 21.0 - 32.0 [facility] Glucose [Mass/volume] in Serum or Plasma 122 mg/dL 70 - 100 Above high normal [facility] Urea nitrogen [Mass/volume] in Serum or Plasma 23 mg/dL 7 - 18 Above high normal [facility] CREATININE SERUM 0.98 mg/dL 0.55 - 1.02 [facility] AGE 65 y[facility] HEIGHT NA [facility] eGFR NON-AFR AMR 57 [facility] eGFR AFR AMR >60 [facility] ital BUN/CREAT 23 6 - 25 [facility] Protein [Mass/volume] in Serum or Plasma 7.9 g/dL 6.0 - 8.3 [facility] Albumin [Mass/volume] in Serum or Plasma 3.8 g/dL 3.8 - 5.4 [facility] GLOBULIN 4.1 g/dL 2.0 - 4.0 Above high normal [facility] A/G RATIO 0.9 0.8 - 2.0 [facility] Calcium [Mass/volume] in Serum or Plasma 9.4 mg/dL 8.8 - 10.2 [facility] Bilirubin.total [Mass/volume] in Serum or Plasma 0.9 mg/dL 0.2 - 1.0 [facility] Bilirubin.direct [Mass/volume] in Serum or Plasma 0.1 mg/dL 0.0 - 0. 2 [facility] INDIRECT BILI 0.8 mg/dL 0.0 - 1.1 [facility] pital ALK PHOSPHATASE 75 U/L 35 - 104 [facility] Aspartate aminotransferase [Enzymatic ac tivity/volume] in Serum or Plasma by With P-5'-P 19 IU/L 7 - 37 [facility] Alanine aminotransferase [Enzymatic acti vity/volume] in Serum or Plasma by With P-5'-P 23 IU/L 12 - 78 [facility] ANION GAP 14 7 - 15 [facility] Estimated GFR referenc e range: >60ml/min/1.73m >18 years: Calculated using IDMS traceable Study Equation <18 years: Calculated using IDMS tracable Bedside Schartz Equation ID Date Data Source [id number] 08/27/2020 08:23:00 AM EST [facility] Name Value Range Interpretation Code Description Data Li rce(s) Supporting Document(s) CBC [facility] COMPLETE BLOOD COUNT Leukocytes [#/volume] in Blood by Automated count 5.1 K/uL 4.0 - 10 .0 [facility] Erythrocytes [#/volume] in Blood by Automated count 4.11 M/uL 4.00 - 5.40 [facility] Hemoglobin [Mass/volume] in Blood 12.5 g/dL 12.0 - 15.5 [facility] Hematocrit [Volume Fraction] of Blood by Automated count 36.9 % 3 6.0 - 44.5 [facility] Erythrocyte mean corpuscular volume [Entitic volume] by Auto mated count 89.8 fL 80.0 - 96.0 [facility] Erythrocyte mean corpuscular hemoglobin [Entitic mass] by Automated count 30.4 pg 26.0 - 34.0 [facility] Erythrocyte mean corpuscular hemoglobin concentration [Mass/volume] by Automated count 33.9 g/dL 32.0 - 36.0 [facility] Erythrocyte distribution width [Ratio] by Automated count 13.1 % 11.6 - 14.8 [facility] Platelets [#/volume] in Blood by Automated count 266 K/uL 150 - 450 [facility] Platelet mean volume [Entitic volume] in Blood by Automated count 8.9 fL 7.1 - 10.4 [facility] Neutrophils [#/volume] in Blood by Automated count 2.89 K/uL 1.70 - 7.70 [facility] Lymphocytes [#/volume] in Blood by Automated count 1.44 K/uL 1.50 - 6.00 Below low normal [facility] Monocytes [#/volume] in Blood by Automated count 0.50 K/uL 0.00 - 1. 00 [facility] Eosinophils [#/volume] in Blood by Automated count 0.14 K/uL 0.00 - 0.30 [facility] Basophils [#/volume] in Blood by Automated count 0.07 K/uL 0.00 - 0. 10 [facility] 0.01 Urinalysis macro (dipstick) panel - Urine 0.000 10^3/uL 0.000 - 0.012 [facility] Neutrophils/100 leukocytes in Blood by Automated count 57.2 % 42. 2 - 75.2 [facility] Lymphocytes/100 leukocytes in Blood by Automated count 28.5 % 15. 0 - 41.0 [facility] Monocytes/100 leukocytes in Blood by Automated count 9.9 % 0.0 - 12.0 [facility] Eosinophils/100 leukocytes in Blood by Automated count 2.8 % 0.0 - 7.0 [facility] 1.40.20 NRBC 0.0 % [facility] MANUAL DIFF NOT INDICATED [facility] RBC MORPH NOT INDICATED [facility] ID Date Data Source [id number] 05/02/2020 02:34:00 PM EDT [facility] ([facility], ) Name Value Range Interpretation Code Description Data Li rce(s) Supporting Document(s) Surgical Pathology Consult Laboratory test result [facility] ([facility], ) Surgical Pathology Report Name: CHIQUIS DELATORRE Collection Date: 05/02/2020 00:00 Received Date: 05/02/2020 14:34 Physician(s): PITER JOSEPH JR, JR, MD VYAS,ABUNDIO Murray MD Specimen(s) Received A: Material received for consultation Clinical History Please do KRAS, NRAS, and MMR by IHC. Diagnosis Results of Immunohistochemistry for Mismatch Repair Protein (MMR): Adenocarcinoma of right colon ([id number], 04/26/20). MLH-1: Expressed (Normal) PMS2: Expressed (Normal) MSH-2: Expressed (Normal) MSH-6: Expressed (Normal) Interpretation: No Deficiency of the Mismatch Repair Protein identified. See Comment. Comment:Although normal MMR expression indicates that Clayton syndrome is less likely to be the cause of colorectal cancer, the result does not rule out Clayton syndrome or other related hereditary cancer syndrome. If there is significant personal and/or family history of colorectal and /or other cancers, genetic counseling should be considered. Referrals for genetic counseling at [facility] can be made via [employer] (Referral to Genetics Counseling and Testing, code: [phone]) or by contacting [phone]. Electronically Signed By Juany Tubbs M.D., Attending Pathologist 05/07/2020 11:41:06 Unless 'gross-only' is specified, the final diagnosis is based on a microscopic examination of care support representative sections of tissue. Gross Description Received from [facility] in [place], [place] is one paraffin block labeled [id number] (A11) with the corresponding pathology report. /duc This report may include one or more immunohistochemical stain results that use analyte specific reagents. All positive and negative controls have been reviewed by the attending pathologist and are satisfactory. The tests were developed and their performance characteristics determined by [facility] Pathology department. They have not been cleared or approved by the US Food and Drug Administration. The FDA has determined that such clearance or approval is not necessary. ID Date Data Source [id number] 05/02/2020 09:44:00 AM EDT [facility] ([facility]) Name Value Range Interpretation Code Description Data Li rce(s) Supporting Document(s) Surgical pathology study Laboratory test result [facility] ([facility]) Anatomic Molecular Pathology Report Name: CHIQUIS DELATORRE Collection Date: 05/02/2020 00:00 Received Date: 05/06/2020 09:45 Physician(s): PITER JOSEPH JR, JR, MD GOSSELIN JR JR, LEO J, MD Copy To: ABUNDIO HALL MD Specimen(s) Received A: Material received for consultation, Formalin Block [id number] A1 received from [facility] in [place], [place] KRAS Mutation Analysis Diagnosis TEST: KRAS gene mutations by therascreene RGQ real-time PCR (polymerase chain reaction). 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 INTERPRETATION: POSITIVE FOR G12A KRAS GENE MUTATION The assay is intended to aid in the identification of patients with colorectal carcinoma (CRC) for anti-EGFR therapy with Erbituxe (cetuximab) or Vectibix (panitumumab). The patients with KRAS mutations, identifiable in approximately 40% CRC, show resistance to the anti-EGFR therapy. The seven mutations (G12S, G12R, G12C, G12D, G12A, G12V, G13D) detected by this assay account for >97% of all reported KRAS mutations in CRC patients. Less than 7% mutant in wild-type DNA may not be detected. The results are adjuncts to other clinical and pathologic information for evaluating the therapeutic response. ligia/ sandra Electronically Signed By Narciso Issa M.D. Attending Pathologist 05/10/2020 21:47:29 Gross Description METHODOLOGY: The therascreen KRAS RGQ PCR Kit is a real-time qualitative PCR assay used on the Rotor-Gene Q MDx instrument for the detection of seven somatic mutations in the human KRAS oncogene, using DNA extracted from formalin-fixed paraffin-embedded (FFPE) colorectal cancer (CRC) tissue. The tumor area is identified by the pathologist and is manually microdissected.The assay uses Scorpionse and ARMSe (Allele Refractory Mutation System) technologies, and is FDA-approved for clinical patient care. Allele-specific amplification is achieved by ARMS which exploits the ability of Taq DNA polymerase to distinguish between a matched and a mismatched base at the 3' end of a PCR primer. Detection of amplification is performed using Scorpions, bifunctional molecules containing a PCR primer covalently linked to a probe. REFERENCES: 1. MISAEL Hebert, Dory FRANCO, Lewis miranda MR, et al. [employer] Society of Clinical Oncology provisional clinical opinion: testing for KRAS gene mutations in patients with metastatic colorectal carcinoma to predict response to anti-epidermal growth factor receptor monoclonal antibody therapy. J Clin Oncol 27:4471-5013, 2009. 2. Maddy Benson , Mirian Forrest , NABIL Farah, et al. Biomarkers predicting clinical outcome of epidermal growth factor receptor targeted therapy in metastatic colorectal cancer. J Natl Cancer Inst 101:13856632, 2009. This report may include one or more immunohistochemical stain results that use analyte specific reagents. All positive and negative controls have been reviewed by the attending pathologist and are satisfactory. The tests were developed and their performance characteristics determined by [facility] Pathology department. They have not been cleared or approved by the US Food and Drug Administration. The FDA has determined that such clearance or approval is not necessary. ID Date Data Source [id number] 05/02/2020 09:41:00 AM EDT [facility] ([facility]) Name Value Range Interpretation Code Description Data Li rce(s) Supporting Document(s) Surgical pathology study Laboratory test result [facility] ([facility]) Anatomic Molecular Pathology Report Name: CHIQUIS DELATORRE Collection Date: 05/02/2020 00:00 Received Date: 05/06/2020 09:43 Physician(s): PITER JOSEPH JR, JR, MD GOSSELIN JR JR, LEO J, MD Copy To: ABUNDIO HALL MD Specimen(s) Received A: Material received for consultation, Formalin Block [id number] A1 received from [facility] in [place], [place] NRAS Diagnosis TESTS: NRAS gene mutation at codon 12 and 13 of exon 2 and codon 61 of exon 3 by Kiesha DNA sequencing. RESULTS: No NRAS gene mutations were identified at codon 12, 13 or 61. INTERPRETATION: NEGATIVE FOR NRAS GENE MUTATION. Mutations at codon 12, 13 or 61 of NRAS gene may predict responsiveness to therapy targeting the MAP kinase pathway in many types of tumor. Interpretation of NRAS result depends on the tissue tested. In colorectal carcinoma, the mutations may indicate lack of response to EGFR inhibition. In melanoma, however, the mutations may indicate whether a tumor is likely to respond to therapy that targets the MAP kinase pathway. These results are adjuncts to other clinical and pathologic information for evaluation of therapeutic response. kalthea/kg Electronically Signed By Juany Tubbs M.D. Attending Pathologist 05/14/2020 13:21:33 Reported at [address] [place] [address]. Gross Description METHODOLOGY: NRAS mutations at codons 12, 13, and 61 were detected on paraffin embedded tissues by Kiesha DNA sequencing (chain terminator sequencing). The tumor area is identified by the attending pathologist and manually microdissected. An amplicon of 255bp containing codons 12 and 13, and an amplicon of 278bp containing codon 61 were amplified using PCR and, if needed, BEHAVIORAL HEALTH AIDE (locked nucleic acid) PCR technique. The amplicon was directly sequenced using the BigDye XTerminator cycle sequencing kit ([employer] Biosystems) and analyzed on HIPOLITO 3500 Genetic Analyzer in duplicates. The analytical sensitivity (low limit of detection) of the assay is approximately 25% of cells with mutation. Test development and its performance characteristics were determined by the [facility], and have been authorized for clinical use by [facility]. The test has not been cleared or approved by the U.S. Food and Drug Administration. The analyte specific reagents used in this assay do not require FDA approval. REFERENCES: 1. Hernandez, Whitney Sullivan, Jay Rodriguez, Cotton J, Polo Sullivan, Jamie G, Deandre MCCONNELL, et al. (2010) Effects of KRAS, BRAF, NRAS, and PIK3CA mutations on the efficacy of cetuximab plus chemotherapy in chemotherapy-refractory metastatic colorectal cancer: a retrospective consortium analysis. Lancet Oncol. 11(8):753-62. 2. Jonatan Zafar.,[facility], rryJL,Niesha Armentaet al. (2011) NRAS mutation status is an indepe ndent prognostic factor in metastatic melanoma.Cancer 118:276405. This report may include one or more immunohistochemical stain results that use analyte specific reagents. All positive and negative controls have been reviewed by the attending pathologist and are satisfactory. The tests were developed and their performance characteristics determined by [facility] Pathology department. They have not been cleared or approved by the US Food and Drug Administration. The FDA has determined that such clearance or approval is not necessary. ID Date Data Source [id number] 05/14/2020 01:21:00 PM [facility] Anatomic Molecular Pathology ReportName: CHIQUIS DELATORREMRN: [id number] Number: [id number] Date: 05/02/2020 00:00Received Date: 05/06/2020 09:43Physician(s): PITER JOSEPH JR, JR, MD GOSSELIN JR JR, LEO J,[facility] [place]opy To:ABUNDIO HALLCARL ALB[facility]pecimen(s) ReceivedA: Material received for consultation, Formalin Block [id number] from [facility] in [place], [place] NRASDiagnosisTESTS: NRAS gene mutation at codon 12 and 13 of exon 2 and codon 61 ofexon 3 by Kiesha DNA sequencing.RESULTS: No NRAS gene mutations were identified at codon 12, 13 or 61.INTERPRETATION: NEGATIVE FOR NRAS GENE MUTATION. Mutations at codon 12, 13 or 61 of NRAS gene may predict responsiveness totherapy targeting the MAP kinase pathway in many types of tumor.Interpretation of NRAS result depends on the tissue tested. In colorectalcarcinoma, the mutations may indicate lack of response to EGFR inhibition.In melanoma, however, the mutations may indicate whether a tumor is likelyto respond to therapy that targets the MAP kinase pathway. These resultsare adjuncts to other clinical and pathologic information for evaluationof therapeutic response. ligia/sandraElectronically Signed By Juany Tubbs M.D. Attending Pathologist 05/14/2020 13:21:33Reported at [address] [place] [address]. Gross DescriptionMETHODOLOGY:NRAS mutations at codons 12, 13, and 61 were detected on paraffin embeddedtissues by [employer] DNA sequencing (chain terminator sequencing). The tumorarea is identified by the attending pathologist and manuallymicrodissected. An amplicon of 255bp containing codons 12 and 13, and anamplicon of 278bp containing codon 61 were amplified using PCR and, ifneeded, BEHAVIORAL HEALTH AIDE (locked nucleic acid) PCR technique. The amplicon was directlysequenced using the BigDye XTerminator cycle sequencing kit ([facility]) and analyzed on HIPOLITO 3500 Genetic Analyzer in duplicates. Theanalytical sensitivity (low limit of detection) of the assay isapproximately 25% of cells with mutation. Test development and its performance characteristics were determined bythe [facility], and have beenauthorized for clinical use by [facility], 1928–1983. Thetest has not been cleared or approved by the U.S. Food and DrugAdministration. The analyte specific reagents used in this assay do notrequire FDA approval. REFERENCES:1. De Gideon W, Whitney B, Charley D, De Any J, Polo B,Jamie G, Deandre KT, et al. (2010) Effects of KRAS, BRAF, NRAS, [id number] mutations on the efficacy of cetuximab plus chemotherapy inchemotherapy-refractory metastatic colorectal cancer: a retrospectiveconsortium analysis. Lancet Oncol. 11(8):753-62. 2. Jonatan Zafar.,Marcio,Kathi Barlow AlvaradoGC,et al.(2011) NRAS mutation status is an independent prognostic factor inmetastatic melanoma.Cancer [id number].This report may include one or more immunohistochemical stain results thatuse analyte specific reagents. All positive and negative controls havebeen reviewed by the attending pathologist and are satisfactory. The testswere developed and their performance characteristics determined by [facility] Pathology department. They have not been cleared or approved by the USFood and Drug Administration. The FDA has determined that such clearanceor approval is not necessary. Name Value Range Interpretation Code Description Data Li rce(s) Supporting Document(s) ID Date Data Source [id number] 05/10/2020 09:47:00 PM T [facility] Anatomic Molecular Pathology ReportName: CHIQUIS DELATORREMRN: [id number] Number: [id number] Date: 05/02/2020 00:00Received Date: 05/06/2020 09:45Physician(s): PITER JOSEPH JR, JR, MD GOSSELIN JR JR, [place]O [place] [place]ABUNDIO HALL MDSpecimen(s) ReceivedA: Material received for consultation, Formalin Block [id number] from [facility] in [place], [place] KRAS MutationAnalysisDiagnosisTEST:KRAS gene mutations by therascreene RGQ real-time PCR (polymerase chainreaction).RESULTS:A G12A KRAS mutation is detected.INTERPRETATION: POSITIVE FOR G12A KRAS GENE MUTATION The assay is intended to aid in the identification of patients withcolorectal carcinoma (CRC) for anti-EGFR therapy with Erbituxe (cetuximab)or Vectibix (panitumumab). The patients with KRAS mutations, identifiablein approximately 40% CRC, show resistance to the anti-EGFR therapy. Theseven mutations (G12S, G12R, G12C, G12D, G12A, G12V, G13D) detected bythis assay account for >97% of all reported KRAS mutations in CRCpatients. Less than 7% mutant in wild-type DNA may not be detected. Theresults are adjuncts to other clinical and pathologic information forevaluating the therapeutic response. ligia/ sandraElectronically Signed By Narciso Issa M.D. Attending Pathologist 05/10/2020 21:47:29Gross DescriptionMETHODOLOGY: The therascreen KRAS RGQ PCR Kit is a real-time qualitative PCR assayused on the Bebestore instrument for the detection of seven somaticmutations in the human KRAS oncogene, using DNA extracted fromformalin-fixed paraffin-embedded (FFPE) colorectal cancer (CRC) tissue. The tumor area is identified by the pathologist and is manuallymicrodissected.The assay uses Scorpionse and ARMSe (Allele RefractoryMutation System) technologies, and is FDA-approved for clinical patientcare. Allele-specific amplification is achieved by ARMS which exploitsthe ability of Taq DNA polymerase to distinguish between a matched and amismatched base at the 3' end of a PCR primer. Detection of amplificationis performed using Scorpions, bifunctional molecules containing a PCRprimer covalently linked to a probe.REFERENCES:1. MISAEL Hebert, Dory FRANCO, Hellen MR, et al. Stateless Societyof Clinical Oncology provisional clinical opinion: testing for KRAS genemutations in patients with metastatic colorectal carcinoma to predictresponse to anti-epidermal growth fact or receptor monoclonal antibodytherapy. J Clin Oncol 27:8088-7961, 2009. 2. Maddy Benson , Mirian Forrest , NABIL Farah, et al.Biomarkers predicting clinical outcome of epidermal growth factor receptortargeted therapy in metastatic colorectal cancer. J Natl Cancer [id number], 2009.This report may include one or more immunohistochemical stain results thatuse analyte specific reagents. All positive and negative controls havebeen reviewed by the attending pathologist and are satisfactory. The testswere developed and their performance characteristics determined by [facility] Pathology department. They have not been cleared or approved by the USFood and Drug Administration. The FDA has determined that such clearanceor approval is not necessary. Name Value Range Interpretation Code Description Data Li rce(s) Supporting Document(s) ID Date Data Source [id number] 05/07/2020 11:41:00 AM [facility] Surgical Pathology ReportName: SUHAIL DELATORREMRN: [id number] Number: [id number] Date: 05/02/2020 00:00Received Date: 05/02/2020 14:34Physician(s): PITER JOSEPH JR, JR, MD VYAS,ABUNDIO Murray,MDSpecimen(s) ReceivedA: Material received for consultationClinical HistoryPlease do KRAS, NRAS, and MMR by IHC.Diagnosis Results of Immunohistochemistry for Mismatch Repair Protein (MMR):Adenocarcinoma of right colon ([id number], 04/26/20). MLH-1: Expressed (Normal) PMS2: Expressed (Normal) MSH-2: Expressed(Normal) MSH-6: Expressed (Normal) Interpretation: No Deficiency of the Mismatch Repair Protein identified.See Comment.Comment:Although normal MMR expression indicates that Clayton syndrome isless likely to be the cause of colorectal cancer, the result does not ruleout Clayton syndrome or other related hereditary cancer syndrome. If thereis significant personal and/or family history of colorectal and /or othercancers, genetic counseling should be considered.Referrals for genetic counseling at [facility] can be made via [employer] (Referralto Genetics Counseling and Testing, code: [id number]) or by [phone]. Electronically Signed By Juany Tubbs M.D., Attending Dvdcpivfneo95/20/2020 11:41:06 Unless 'gross- only' is specified, the final diagnosis is based on amicroscopic examination of care support representative sections of tissue.Gross DescriptionReceived from [facility] in [place], [place] is one paraffinblock labeled [id number] (A11) with the corresponding pathology report./jrsThis report may include one or more immunohistochemical stain results thatuse analyte specific reagents. All posit logan and negative controls havebeen reviewed by the attending pathologist and are satisfactory. The testswere developed and their performance characteristics determined by [facility] Pathology department. They have not been cleared or approved by the USFood and Drug Administration. The FDA has determined that such clearanceor approval is not necessary. Name Value Range Interpretation Code Description Data Li rce(s) Supporting Document(s) ID Date Data Source [id number] 04/21/2020 11:00:00 AM EDT [facility] Name Value Range Interpretation Code Description Data Li rce(s) Supporting Document(s) SARS coronavirus 2 RNA [facility] This lab was ordered by [facility] and reported by [facility]. ID Date Data Source [id number] 04/08/2020 09:18:00 AM EDT [facility] ([facility], ) Name Value Range Interpretation Code Description Data Li rce(s) Supporting Document(s) Carcinoembryonic Ag [Mass/volume] in Serum or Plasma 1.4 ng/mL Normal (applies to non-numeric results) [facility] ([facility], ) THE CEA ASSAY IS PERFORMED ON THE Language Learning Class[employer]UR BY CHEMILUMINESCENCE AND SHOULD NOT BE COMPARED INTERCHANGEABLY WITH OTHER METHODS. IT SHOULD NOT BE USED ALONE A SCREENING TEST OR DIAGNOSIS FOR THE PRESENCE OR ABSENCE OF MALIGNANT DISEASE. PREDICTIONS OF DISEASE RECURRENCE SHOULD NOT BE BASED SOLELY ON VALUES OBTAINED FROM SERIAL PATIENT SERUM VALUES. ID Date Data Source [id number] 04/08/2020 09:18:00 AM EDT [facility] ([facility]) Name Value Range Interpretation Code Description Data Li rce(s) Supporting Document(s) Red Blood Count 3.35 10 4.00-5.40 Below low normal [facility] ([facility]) White Blood Count 5.5 10 4.0-10.0 Normal (applies to non-numeri c results) [facility] ([facility]) Hemoglobin 10.1 g/dL 12.0-15.5 Below low normal [facility] ( [facility]) Mean Corpuscular Volume 90.7 fl 80.0-96.0 Normal ( applies to non-numeric results) [facility] ([facility]) Hematocrit 30.4 % 36.0-47.0 Below low normal [facility] ( [facility]) Mean Corpuscular Hemoglobin 30.1 pg 27.0-33.0 Norm al (applies to non-numeric results) [facility] ([facility]) Red Cell Distribution Width 13.1 % 11.5-14.5 Norm al (applies to non-numeric results) [facility] ([facility]) Platelet Count, Automated 309 10 150-450 Normal (applies to non-numeric results) [facility] ([facility]) Mean Corpuscular HGB Conc 33.2 g/dL 32.0-36.5 Normal (applies to non-numeric results) [facility] ([facility]) Neutrophils % 52.7 % 36.0-66.0 Normal (applies to non-numeric re sults) [facility] [place] % 11.7 % 0.0-5.0 Above high normal [facility] ([facility]) Lymph % 30.3 % 24.0-44.0 Normal (applies to non-numeric resul ts) [facility] Eos % 3.3 % 0.0-3.0 Above high normal [facility] Immature Granulocyte % 0.4 % 0-3.0 Normal (applies to non-n umeric results) [facility] ([facility], ) Baso % 1.6 % 0.0-1.0 Above high normal [facility] ([facility]) Nucleated Red Blood Cell % 0.0 % 0-0 Normal (applies to n on-numeric results) [facility] ([facility]) Neutrophils # 2.9 10 1.5-8.5 Normal (applies to non-numeric re sults) [facility] ([facility]) Lymph # 1.7 10 1.5-5.0 Normal (applies to non-numeric resul ts) [facility] [place] # 0.6 10 0.0-0.8 Normal (applies to non-numeric resul ts) [facility]) Eos # 0.2 10 0.0-0.5 Normal (applies to non-numeric resul ts) [facility] ([facility]) Baso # 0.1 10 0.0-0.2 Normal (applies to non-numeric resul ts) [facility] ([facility]) ID Date Data Source [id number] 04/08/2020 09:18:00 AM EDT [facility] ([facility]) Name Value Range Interpretation Code Description Data Li rce(s) Supporting Document(s) Ast/Sgot 15 U/L 7-37 Normal (applies to non-numeric resul ts) [facility] ([facility]) Alt/SGPT 20 U/L 12-78 Normal (applies to non-numeric resul ts) [facility] ([facility]) Alkaline Phosphatase 71 U/L 45-117 Normal (applies to non-num maia results) [facility]) Bilirubin,Total 0.6 mg/dL 0.2-1.0 Normal (applies to non-numeric results) [facility]) Bilirubin,Direct 0.2 mg/dL 0.0-0.2 Normal (applies to non-numeric results) [facility] ([facility]) Total Protein 7.1 GM/DL 6.4-8.2 Normal (applies to non-numeric re sults) [facility] ([facility]) Albumin/Globulin Ratio 1.1 1.2-2.2 Below low normal [facility] ([facility]) Albumin 3.7 GM/DL 3.2-5.2 Normal (applies to non-numeric resul ts) [facility] ([facility]) ID Date Data Source [id number] 04/08/2020 09:18:00 AM EDT [facility] ([facility]) Name Value Range Interpretation Code Description Data Li rce(s) Supporting Document(s) Glomerular Filtration Rate Laboratory test result Normal (applies to non- numeric results) [facility] ([facility]) <content>Units are mL/min/1.73 m2</content>
<content></content>
<content>Chronic Kidney Disease Staging per NKF:</content>
<content></content>
<content>Stage I & II GFR >=60 Normal to Mildly Decreased</content>
<content>Stage III GFR 30- 59 Moderately Decreased</content>
<content>Stage IV GFR 15-29 Severely Decreased</content>
<content>Stage V GFR <15 Very Little GFR Left</content>
<content>ESRD GFR <15 on BEHAVIORAL CONSULTANT</content>
<content></content> Creatinine For GFR 0.88 mg/dL 0.55-1.30 Normal (applies to non -numeric results) [facility] ([facility]) ID Date Data Source [id number] 04/08/2020 09:18:00 AM EDT [facility] ([facility]) Name Value Range Interpretation Code Description Data Li rce(s) Supporting Document(s) Urea nitrogen [Mass/volume] in Serum or Plasma 20 mg/dL 7-18 Above high normal [facility] ([facility]) ID Date Data Source [id number] 04/02/2020 10:31[facility] Name Value Range Interpretation Code Description Data Li rce(s) Supporting Document(s) Surgical pathology study Laboratory test result [facility] ([facility], ) <content>FINAL DIAGNOSIS</content>
< content></content>
<content>A - Small bowel, biopsy:</content>
<content>Duodenal mucosa with intact villous architecture.</content>
<content>No evidence of celiac disease.</content>
<content></content>
<content>B - Stomach, biopsy:</content>
<content>Gastric mucosa with reactive gastropathy.</content>
<content>No evidence of H. Pylori on H&E stain.</content>
<content></content>
<content>C - Esophagus, lower, biopsy:</content>
<content>Squamous mucosa with no significant histopathologic changes.</content>
<content>No evidence of metaplasia or dysplasia.</content>
<content></content>
<content>D - Colon, ascending mass, biopsy:</content>
<content>Adenomatous colonic mucosa with high-grade dysplasia, see comment.</content>
<content></content>
<content>COMMENT: The biopsy shows superficial glandular high-grade dysplasia.</content>
< content>There is no definitive invasion, and a definitive diagnosis of</content>
<content>adenocarcinoma cannot be made on this biopsy. If concern for</content>
<content>adenocarcinoma persists, please consider a deeper re-biopsy, if</content>
<content>clinically indicated.</content>
<content>04/04/2020 - 0906</content>
<content></content>
<content>CLINICAL DIAGNOSIS</content>
<content></content>
<content>Iron deficiency anemia</content>
<content>04/02/2020 - 1426</content>
<content></content>
<content>GROSS DIAGNOSIS</content>
<content></content>
<content>A - Received in formalin labeled "small bowel biopsy R/O celiac" are</content>
<content> three pieces 0.4 x 0.3 x 0.2 cm. in aggregate. All in one.</content>
<content></content>
<content>B - Received in formalin labeled "gastric biopsy R/O H. pylori" are two</content>
<content>pieces 0.3 x 0.3 x 0.2 cm. All in one.</content>
<content></content>
<content>C - Received in formalin labeled "biopsy lower esophagus R/O Ramirez's"</content>
<content>are two pieces 0.3 x 0.3 x 0.2 cm. in aggregate. All in one.</content>
<content></content>
<content>D - Received in formalin labeled "biopsies mass ascending colon" are</content>
<content>multiple pieces 0.5 x 0.5 x 0.3 cm. in aggregate. All in one.</content>
<content>-SV</content>
<content>04/02/2020 - 1426</content>
<content></content>
<content>Signed ABUNDIO HALL MD 04/04/2020 0906</content>
<content></content> ID Date Data Source [id number] 03/28/2020 11:00:00 AM EDT [facility] Name Value Range Interpretation Code Description Data Li rce(s) Supporting Document(s) SARS coronavirus 2 RNA [facility] This lab was ordered by [facility] and reported by [facility]. Procedure Social History Code Duration Value Status Description Data Source(s ) Smoking 04/28/2021 12:00:00 AM EDT Never Smoked A Pipe complet ed Never Smoked A Pipe [facility] ([facility]) Alcohol intake 02/06/2021 12:00:00 AM EDT Lifetime non-drinker (finding) completed Lifetime non-drinker (finding) [facility] Alcohol intake 06/27/2020 12:00:00 AM EST Never completed [facility] Smoking 06/27/2020 12:00:00 AM EST Never smoker completed Never s moker [facility] Vital Signs ID Date Data Source UNK Name Value Range Interpretation Code Description Data Source(s) Systolic blood pressure 120 mm[Hg] 120 mm[Hg] [facility] Diastolic blood pressure 74 mm[Hg] 74 mm[Hg] [facility] Heart rate 76 /min 76 /min [facility] Body height 165.1 cm 165.1 cm [facility] Body weight 80.74 kg 80.74 kg [facility] Body mass index (BMI) [Ratio] 29.62 kg/m2 29.62 kg/m2 [facility] Systolic blood pressure 140 mm[Hg] 140 mm[Hg] [facility] Diastolic blood pressure 76 mm[Hg] 76 mm[Hg] [facility] Heart rate 70 /min 70 /min [facility] Body height 165.1 cm 165.1 cm [facility] Body weight 77.565 kg 77.565 kg [facility] Body mass index (BMI) [Ratio] 28.46 kg/m2 28.46 kg/m2 [facility] Oxygen saturation in Arterial blood by Pulse oximetry 99 % 99 % [facility] Systolic blood pressure 148 mm[Hg] 148 mm[Hg] [facility] ([facility], ) Diastolic blood pressure 82 mm[Hg] 82 mm[Hg] [facility] ([facility], ) Body height 66 [in_i] 66 [in_i] [facility] ([facility], ) 5'6" Body weight 171.00 [lb_av] 171.00 [lb_av] [facility] ([facility], ) Body mass index (BMI) [Ratio] 27.6 kg/m2 27.6 k g/m2 [facility] ([facility]) [place] body weight 130 [lb_av] 130 [lb_av] [facility] ([facility]) Body weight 77.566 kg 77.566 kg [facility] ([facility]) Body surface area Derived from formula 1.87 m2 1.87 m2 [facility] ([facility]) [place] body weight 130 [lb_av] 130 [lb_av] [facility] ([facility]) Body weight 75.921 kg 75.921 kg [facility] ([facility]) Systolic blood pressure 154 mm[Hg] 154 mm[Hg] M [facility] ([facility]) Diastolic blood pressure 80 mm[Hg] 80 mm[Hg] [facility] ([facility]) Body height 66 [in_i] 66 [in_i] [facility] ([facility]) 5'6" Body weight 167.38 [lb_av] 167.38 [lb_av] [facility] ([facility]) Body mass index (BMI) [Ratio] 27.0 kg/m2 27.0 k g/m2 [facility] ([facility]) Body surface area Derived from formula 1.85 m2 1.85 m2 [facility] ([facility]) Body weight 171.00 [lb_av] 171.00 [lb_av] [facility] ([facility]) Diastolic blood pressure 90 mm[Hg] 90 mm[Hg] [facility] ([facility]) Body mass index (BMI) [Ratio] 27.6 kg/m2 27.6 k g/m2 [facility] ([facility]) [place] body weight 130 [lb_av] 130 [lb_av] [facility] ([facility]) Body height 66 [in_i] 66 [in_i] [facility] 5'6" Body weight 77.566 kg 77.566 kg [facility] ([facility]) Systolic blood pressure 166 mm[Hg] 166 mm[Hg] [facility] ([facility], ) Systolic blood pressure 158 mm[Hg] 158 mm[Hg] M [facility] ([facility], ) Diastolic blood pressure 76 mm[Hg] 76 mm[Hg] [facility] ([facility], ) Body height 66 [in_i] 66 [in_i] [facility] ([facility], ) 5'6" Body weight 170.00 [lb_av] 170.00 [lb_av] [facility] Body mass index (BMI) [Ratio] 27.4 kg/m2 27.4 k g/m2 [facility] ([facility], ) [place] body weight 130 [lb_av] 130 [lb_av] [facility] Body weight 77.112 kg 77.112 kg [facility] ([facility], ) Patient Treatment Plan of Care Planned Activity Planned Date Details Description Data Source (s) ferrous gluconate 324 MG Oral Tablet [facility]
--- OUTSIDE RECORDS SUMMARY | 2021-05-02 07:01 | CCD | Continuity of Care Document ---
Author Author Chiquis GAVIRIA DPM-PC Organization Unknown Address [address] [place] [address] Phone [phone] Care Team Providers Care Cage Loader Name Role Phone [facility] AUTM [phone] Problems Active Problems Provider Date Edema Katey [...] Never Smoked A Pipe Smoking Status Reviewed: 02/18/21 Never Smoked A Pipe Tobacco Use Start: Unknown Never Used Smokeless Tobacco ETOH Use Denies alcohol use Tobacco Use Start: Unknown Patient has never smoked Allergies, Adverse Reactions, Alerts Active Allergies Reaction Severity Comments Date Ampicillin Contact dermatitis 8 Demerol Urticaria 12/15/2017 Medications Active Medications SIG Qnty [...] Information Available Procedures Date Code Description Status 12/10/2020 23527 Debridement Nails Any Method 1-5 Completed 12/10/2020 28700 Pare Hyperkeratotic Lesion, 2-4 Completed 09/26/2020 24657 Debridement Nails Any Method 1-5 Completed 09/26/2020 09844 Pare Hyperkeratotic Lesion, 2-4 Completed Medical Devices Description No Information Available Encounters Description No Information Available Assessments Date Code Description Provider 02/18/2021 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 MARIO VazquezM-pc 02/18/2021 R60.1 Generalized edema Katey Gaviria DPM-pc 02/18/2021 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, unspeci fied lower limb Katey Gaviria DPM-pc 02/18/2021 L60.3 Nail dystrophy Katey Gaviria DPM-pc 02/18/2021 B35.1 Tinea unguium Katey Gaviria DPM-pc 02/18/2021 L84 Corns and callosities Katey Will daisy DPM-pc 12/10/2020 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 KateyMARIO AlfredM-pc 12/10/2020 R60.1 Generalized edema Katey Gaviria DPM-pc 12/10/2020 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, unspeci fied lower limb Katey Gaviria DPM-pc 12/10/2020 L60.3 Nail dystrophy MARIO VazquezM-pc 12/10/2020 B35.1 Tinea unguium Katey Gaviria DPM-pc 12/10/2020 L84 Corns and callosities Katey Will daisy DPM-pc 09/26/2020 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 Johnathon Vazquez 09/26/2020 R60.1 Generalized edema Johnathon Vazquez 09/26/2020 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, unspeci fied lower limb Johnathon Vazquez 09/26/2020 L60.3 Nail dystrophy Johnathon Vazquez 09/26/2020 B35.1 Tinea unguium Johnathon Vazquez 09/26/2020 L84 Corns and callosities Johnathon Mansfield Plan of Treatment Future Appointment(s):* 04/30/2021 10:30 am - Johnathon Vazquez at [facility] 02/18/2021 - Johnathon Vazquez* E11.49 Type 2 diabetes mellitus with other diabetic neurological co * R60.1 Generalized edema * 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 I debrided mycotic nails: x2 with nippers and burred to normal thickness. I trimmed dystrophic nails: x8 with nippers and bur. She was advised to continue wearing supportive stocking on the left leg to control her edema. Lotioned feet. Follow up in 10-weeks. * B35.1 Tinea unguium * L84 Corns and callosities Functional Status Description No Information Available Mental Status Description No Information Available Referrals Description No Information Available
[2021-05-02] MEDS ORDERED: LIDOCAINE 2% 100MG/5ML SDV (FOR ANES.) As Ordered ONE (08:44)
[2021-05-02] MEDS ORDERED: propofoL 200 MG/20 ML VIAL As Ordered ONE (08:44)
[2021-05-02] MEDS ORDERED: PHENYLephrine 500MCG 5ML (100MCG/ML) SYRINGE As Ordered ONE (08:48)
--- NOTE | 2021-05-02 09:07 | ROOR ---
Patient Name: Chiquis Greenwood Procedure Date: 05/02/2021 8:22 AM Date of : 1955 Age: 65 Room: [facility] Gender: Female Note Status: Finalized Procedure: Colonoscopy Indications: High risk colon cancer surveillance: Personal history of colon cancer Providers: Nils Lopez MD Referring MD: Narciso Mae Do Requesting Provider: Medicines: Monitored Anesthesia Care Complications: No immediate complications. Procedure: Pre-Anesthesia Assessment: - Prior to the procedure, a History and Physical was performed, and patient medications and allergies were reviewed. The patient is competent. The risks and benefits of the procedure and the sedation options and risks were discussed with the patient. All questions were answered and informed consent was obtained. Patient identification and proposed procedure were verified by the physician, the nurse and the anesthesiologist in the procedure room. Mental Status Examination: alert and oriented. Airway Examination: normal oropharyngeal airway and neck mobility. Respiratory Examination: clear to auscultation. CV Examination: normal. Prophylactic Antibiotics: The patient does not require prophylactic antibiotics. Prior Anticoagulants: The patient has taken no previous anticoagulant or antiplatelet agents. ASA Grade Assessment: II - A patient with mild systemic disease. After reviewing the risks and benefits, the patient was deemed in satisfactory condition to undergo the procedure. The anesthesia plan was to use monitored anesthesia care (MAC). Immediately prior to administration of medications, the patient was re-assessed for adequacy to receive sedatives. The heart rate, respiratory rate, oxygen saturations, blood pressure, adequacy of pulmonary ventilation, and response to care were monitored throughout the procedure. The physical status of the patient was re-assessed after the procedure. The Colonoscope was introduced through the anus and advanced to the ileocolonic anastomosis. The colonoscopy was performed without difficulty. The patient tolerated the procedure well. The quality of the bowel preparation was good. The terminal ileum and the rectum were photographed. Scope insertion time was 2 minutes. Scope withdrawal time was 8 minutes. The total duration of the procedure was 10 minutes. Findings: The perianal and digital rectal examinations were normal. The han-terminal ileum appeared normal. There was evidence of a prior functional end-to-end ileo-colonic anastomosis in the ascending colon. This was patent and was characterized by healthy appearing mucosa. The anastomosis was traversed. Multiple small and large-mouthed diverticula were found from sigmoid to transverse colon. There was no evidence of diverticular bleeding. Non-bleeding external and internal hemorrhoids were found during retroflexion. The hemorrhoids were medium-sized. Impression: - The examined portion of the ileum was normal. - Patent functional end-to-end ileo-colonic anastomosis, characterized by healthy appearing mucosa. - Moderate diverticulosis from sigmoid to transverse colon. There was no evidence of diverticular bleeding. - Non-bleeding external and internal hemorrhoids. - No specimens collected. Recommendation: - Patient has a contact number available for emergencies. The signs and symptoms of potential delayed complications were discussed with the patient. Return to normal activities tomorrow. Written discharge instructions were provided to the patient. - High fiber diet. - Continue present medications. - Await pathology results. - Repeat colonoscopy in 3 years for surveillance. - Return to GI clinic as previously scheduled on 05/13/2021 at 2:10 PM. (New clinic address: [id number] [facility], [address] [place] [address], [place], [place],[address]. Please call GI clinic @ [phone] if any questions). - Return to primary care physician. . Procedure Code(s): --- Professional --- 18223, Colonoscopy, flexible; diagnostic, including collection of specimen(s) by brushing or washing, when performed (separate procedure) Diagnosis Code(s): --- Professional --- Z85.038, Personal history of other malignant neoplasm of large intestine K64.8, Other hemorrhoids Z98.0, Intestinal bypass and anastomosis status K57.30, Diverticulosis of large intestine without perforation or abscess without bleeding CPT copyright 2019 [employer]. All rights reserved. The codes documented in this report are preliminary and upon compound machine operator review may be revised to meet current compliance requirements. Nils Lopez MD Nils Lopez MD 05/02/2021 9:07:16 AM Electronically signed by Nils Lopez MD Number of Addenda: 0 Note Initiated On: 05/02/2021 8:22 AM Estimated Blood Loss: Estimated blood loss was minimal.
[2021-05-02 09:20] VITALS: BP 152/74
== END 2021-05-02 09:28 | disposition home or self-care (01) ==
LOC: M OPP 06:57
PROVIDERS: ATTEND Internal Medicine Gastroenterology
DX: K57.30 Diverticulosis of large intestine without perforation or abscess without bleeding (principal); Z98.0 Intestinal bypass and anastomosis status; K64.8 Other hemorrhoids; Z85.038 Personal history of other malignant neoplasm of large intestine; Z08 Encounter for follow-up examination after completed treatment for malignant neoplasm; Z79.82 Long term (current) use of aspirin; Z79.84 Long term (current) use of oral hypoglycemic drugs; Z79.899 Other long term (current) drug therapy; Z88.0 Allergy status to penicillin; Z88.5 Allergy status to narcotic agent
CPT/HCPCS: 45378; J2370

== ENCOUNTER → 2021-11-13 | Outpatient (CLI) | payer MEDICARE, BC ==
[~2021-11-13] MED LIST changes: +GASTROGRAFIN SOLUTION 30ML (Q9963) As Ordered ONE; +ISOVUE-370 76% 100ML VIAL As Ordered ONE; -NS 1,000 ML IV ONE
== END ==
LOC: M RAD 12:42
PROVIDERS: ATTEND Specialist
DX: C18.9 Malignant neoplasm of colon, unspecified (principal); K76.0 Fatty (change of) liver, not elsewhere classified
CPT/HCPCS: 71260; 74177; Q9963; Q9967

== ENCOUNTER → 2022-04-21 | Outpatient (CLI) | payer MEDICARE, BC | LOC: M RAD 10:56 | PROVIDERS: ATTEND Specialist | DX: C18.9 Malignant neoplasm of colon, unspecified (principal); E04.2 Nontoxic multinodular goiter | CPT/HCPCS: 71260; 74177; Q9963; Q9967 ==

== ENCOUNTER → 2022-10-27 | Outpatient (CLI) | payer MEDICARE, BC ==
[~2022-10-27] MED LIST changes: -GASTROGRAFIN SOLUTION 30ML (Q9963) As Ordered ONE; +GASTROGRAFIN SOLUTION 30ML As Ordered ONE
== END ==
LOC: M RAD 11:06
PROVIDERS: ATTEND Internal Medicine Hematology & Oncology
DX: C18.9 Malignant neoplasm of colon, unspecified (principal)
CPT/HCPCS: 71260; 74177; Q9963; Q9967